=== PATIENT | male | born 1975 | race American Indian/Alaskan Native ===

== ENCOUNTER 2018-12-18 18:06 | Emergency (ER) | payer MEDICARE ==
[2018-12-18 18:31] LABS: Basophils % (Auto) 0.5 % (0.0-1.8); Eosinophils # (Auto) 0.1 K/mm3 (0.0-0.4); Eosinophils % (Auto) 2.1 % (0.0-4.3); Hemoglobin 15.2 gm/dl (11.8-15.2); Lymphocytes # (Auto) 2.5 K/mm3 (1.2-5.4); Lymphocytes % (Auto) 48.5 % (13.4-35.0); Mean Corpuscular HGB Conc 34 % (32-34); Mean Corpuscular Volume 102 fl (84-94); Monocytes # (Auto) 0.5 K/mm3 (0.0-0.8); Platelet Count 172 K/mm3 (140-440); Red Cell Distribution Width 14.4 % (13.2-15.2)
[2018-12-18 18:46] LABS: BUN/Creatinine Ratio 6; Blood Urea Nitrogen 6 mg/dL (9-20); Calcium 9.3 mg/dL (8.4-10.2); Hemolysis Index 6
[2018-12-18 18:50] LABS: Albumin 4.7 g/dL (3.9-5); Bilirubin,Direct 0.2 mg/dL (0-0.2)
[2018-12-18] MEDS ORDERED: ATIVAN IV PRN ×3 (19:13)
[2018-12-18] MEDS ORDERED: HALDOL IV PRN (19:13)
--- NOTE | 2018-12-18 19:46 | Emergency Department Report ---
Chief Complaint: Medical Clearance Stated Complaint: DETOX Time Seen by Provider: 12/18/18 18:14 - HPI History of Present Illness: voluntary polysub detox to main ER no HI/no SI MSE completed - Exam Vital Signs: Vital Signs 12/18/18 18:10 Temperature 98.2 F Pulse Rate 113 H Respiratory 18 Rate Blood Pressure 126/79 O2 Sat by Pulse 97 Oximetry MSE screening note: Focused history and physical exam performed. Due to findings the following was ordered: ED Medical Decision Making - Lab Data Result diagrams: 12/18/18 18:23 12/18/18 18:23 ED Disposition for MSE Condition: Stable Referrals: REBEKAH FITCH MD [Primary Care Provider] - 3-5 Days
[2018-12-18] MEDS ORDERED: VITAMIN B-1 100 MG, FOLVITE 1 MG, INFUVITE 10 ML in NACL 0.9% 1000 ML 1,000 ML IV ONE (20:13)
--- NOTE | 2018-12-18 20:27 | Emergency Department Report ---
ED Medical Clearance HPI - General Chief complaint: Medical Clearance Stated complaint: DETOX Time Seen by Provider: 12/18/18 18:14 Source: patient Mode of arrival: Ambulatory - History of Present Illness Initial comments: Patient is a 43-year-old Male who is presenting to the emergency department requesting a drug and alcohol treatment program. Patient states that he is a heavy drinker and has been drinking since he was age 9. Patient states he uses multiple illicit drugs including ecstasy mildly OxyContin and marijuana. Patient occasionally also uses benzos as well. Patient states his last drink was several hours ago however he would like to go to a treatment program and changes life around. Patient denies any homicidal suicidal ideations at this time. Home medications: Home Medications Medication Instructions Recorded Confirmed Last Taken ARIPiprazole [Abilify Maintena] 400 mg IM QMONTH 09/04/18 09/04/18 Unknown Asenapine Maleate [Saphris] 10 mg SL HS 09/04/18 09/04/18 Unknown Buprenorphine HCl/Naloxone HCl 4 mg SL DAILY 09/04/18 09/04/18 Unknown [Suboxone 4 mg-1 mg SL Film] [place] Carbonate 300 mg PO TID 09/04/18 09/04/18 Unknown Quetiapine Fumarate [Seroquel] 100 mg PO BID 09/04/18 09/04/18 Unknown Venlafaxine [Effexor 25mg tab] 25 mg PO BID 09/04/18 09/04/18 Unknown busPIRone [Buspar] 10 mg PO TID 09/04/18 09/04/18 Unknown Previous Rx's Medication Instructions Recorded Last Taken Type Ondansetron [Zofran Odt] 4 mg PO Q8HR #10 tab.rapdis 09/04/18 Unknown Rx amLODIPine [Norvasc] 5 mg PO DAILY #30 tablet 09/04/18 Unknown Rx Allergies/Adverse reactions: Allergies Allergy/AdvReac Type Severity Reaction Status Date / Time iodine Allergy Angioedema Verified 09/04/18 11:17 Penicillins Allergy Swelling Verified 09/04/18 11:17 shellfish derived Allergy Angioedema Verified 09/04/18 11:17 venom-honey bee Allergy Swelling Verified 09/04/18 11:17 [bee venom (honey bee)] ED Review of Systems ROS: Stated complaint: DETOX Other details as noted in HPI Comment: All other systems reviewed and negative ED Past Medical Hx - Past Medical History Previous Medical History?: Yes Hx Hypertension: Yes Hx Psychiatric Treatment: Yes (BIPOLAR,PTSD,PARANOID SCHIZO,DEPRESSION) Additional medical history: paranoid schizophrenia and bipolar. MANIC DEPRESSION. PTSD. ECT TREATMENTS CURRENTLY - Surgical History Past Surgical History?: No - Social History Smoking Status: Current Every Day Smoker Substance Use Type: Alcohol, Cocaine, Marijuana, Methamphetamines - Medications Home Medications: Home Medications Medication Instructions Recorded Confirmed Last Taken Type ARIPiprazole [Abilify Maintena] 400 mg IM QMONTH 09/04/18 09/04/18 Unknown Histo ry Asenapine Maleate [Saphris] 10 mg SL HS 09/04/18 09/04/18 Unknown History Buprenorphine HCl/Naloxone HCl 4 mg SL DAILY 09/04/18 09/04/18 Unknown History [Suboxone 4 mg-1 mg SL Film] [place] Carbonate 300 mg PO TID 09/04/18 09/04/18 Unknown History Ondansetron [Zofran Odt] 4 mg PO Q8HR #10 tab.rapdis 09/04/18 Unknown Rx Quetiapine Fumarate [Seroquel] 100 mg PO BID 09/04/18 09/04/18 Unknown History Venlafaxine [Effexor 25mg tab] 25 mg PO BID 09/04/18 09/04/18 Unknown History amLODIPine [Norvasc] 5 mg PO DAILY #30 tablet 09/04/18 Unknown Rx busPIRone [Buspar] 10 mg PO TID 09/04/18 09/04/18 Unknown History ED Physical Exam - General Limitations: No Limitations General appearance: alert, in no apparent distress - Head Head exam: Present: atraumatic, normocephalic - Eye Eye exam: Present: normal appearance - ENT ENT exam: Present: mucous membranes moist - Neck Neck exam: Present: normal inspection - Respiratory Respiratory exam: Present: normal lung sounds bilaterally. Absent: respiratory distress, wheezes, rales, rhonchi - Cardiovascular Cardiovascular Exam: Present: regular rate, normal rhythm. Absent: systolic murmur, diastolic murmur, rubs, gallop - GI/Abdominal GI/Abdominal exam: Present: soft, normal bowel sounds. Absent: distended, tenderness, guarding, rebound - Rectal Rectal exam: Present: deferred - Extremities Exam Extremities exam: Present: normal inspection - Back Exam Back exam: Present: normal inspection - Neurological Exam Neurological exam: Present: alert, oriented X3 - Psychiatric Psychiatric exam: Present: normal affect, normal mood - Skin Skin exam: Present: warm, dry, intact, normal color. Absent: rash ED Course Vital Signs 12/18/18 18:10 Temperature 98.2 F Pulse Rate 113 H Respiratory 18 Rate Blood Pressure 126/79 O2 Sat by Pulse 97 Oximetry - Reevaluation(s) Reevaluation #1: 12/19/18 00:18 Patient was placed on a 2013 for the patient's safety. Patient still awaiting a urinalysis at this time. ED Medical Decision Making - Lab Data Result diagrams: 12/18/18 18:23 12/18/18 18:23 Lab Results 12/18/18 12/18/18 12/18/18 Range/Units 18:23 18:23 18:23 WBC (4.5-11.0) K/mm3 RBC (3.65-5.03) M/mm3 Hgb (11.8-15.2) gm/dl Hct (35.5-45.6) % MCV (84-94) fl MCH (28-32) pg MCHC (32-34) % RDW (13.2-15.2) % Plt Count (140-440) K/mm3 Lymph % (Auto) (13.4-35.0) % [place] % (Auto) (0.0-7.3) % Eos % (Auto) (0.0-4.3) % Baso % (Auto) (0.0-1.8) % Lymph # (1.2-5.4) K/mm3 [place] # (0.0-0.8) K/mm3 Eos # (0.0-0.4) K/mm3 Baso # (0.0-0.1) K/mm3 Seg Neutrophils % (40.0-70.0) % Seg Neutrophils # (1.8-7.7) K/mm3 Sodium 141 (137-145) mmol/L Potassium 4.4 (3.6-5.0) mmol/L Chloride 103.2 (98-107) mmol/L Carbon Dioxide 24 (22-30) mmol/L Anion Gap 18 mmol/L BUN 6 L (9-20) mg/dL Creatinine 1.0 (0.8-1.5) mg/dL Estimated GFR > 60 ml/min BUN/Creatinine Ratio 6 % Glucose 71 L (75-100) mg/dL Calcium 9.3 (8.4-10.2) mg/dL Total Bilirubin (0.1-1.2) mg/dL Direct Bilirubin (0-0.2) mg/dL Indirect Bilirubin mg/dL AST (5-40) units/L ALT (7-56) units/L Alkaline Phosphatase (35-129) units/L Total Protein (6.3-8.2) g/dL Albumin (3.9-5) g/dL Albumin/Globulin Ratio % Salicylates < 0.3 L (2.8-20.0) mg/dL Acetaminophen < 5.0 L (10.0-30.0) ug/mL Plasma/Serum Alcohol (0-0.07) % 12/18/18 12/18/18 12/18/18 Range/Units 18:23 18:23 18:23 WBC 5.1 (4.5-11.0) K/mm3 RBC 4.40 (3.65-5.03) M/mm3 Hgb 15.2 (11.8-15.2) gm/dl Hct 45.0 (35.5-45.6) % MCV 102 H (84-94) fl MCH 35 H (28-32) pg MCHC 34 (32-34) % RDW 14.4 (13.2-15.2) % Plt Count 172 (140-440) K/mm3 Lymph % (Auto) 48.5 H (13.4-35.0) % [place] % (Auto) 9.0 H (0.0-7.3) % Eos % (Auto) 2.1 (0.0-4.3) % Baso % (Auto) 0.5 (0.0-1.8) % Lymph # 2.5 (1.2-5.4) K/mm3 [place] # 0.5 (0.0-0.8) K/mm3 Eos # 0.1 (0.0-0.4) K/mm3 Baso # 0.0 (0.0-0.1) K/mm3 Seg Neutrophils % 39.9 L (40.0-70.0) % Seg Neutrophils # 2.0 (1.8-7.7) K/mm3 Sodium (137-145) mmol/L Potassium (3.6-5.0) mmol/L Chloride (98-107) mmol/L Carbon Dioxide (22-30) mmol/L Anion Gap mmol/L BUN (9-20) mg/dL Creatinine (0.8-1.5) mg/dL Estimated GFR ml/min BUN/Creatinine Ratio % Glucose (75-100) mg/dL Calcium (8.4-10.2) mg/dL Total Bilirubin 0.90 (0.1-1.2) mg/dL Direct Bilirubin 0.2 (0-0.2) mg/dL Indirect Bilirubin 0.7 mg/dL AST 27 (5-40) units/L ALT 20 (7-56) units/L Alkaline Phosphatase 55 (35-129) units/L Total Protein 7.2 (6.3-8.2) g/dL Albumin 4.7 (3.9-5) g/dL Albumin/Globulin Ratio 1.9 % Salicylates (2.8-20.0) mg/dL Acetaminophen (10.0-30.0) ug/mL Plasma/Serum Alcohol 0.09 H (0-0.07) % - Medical Decision Making patient is medically cleared for detox treatment programs ED Disposition Clinical Impression: Schizophrenia, chronic condition, Polysubstance abuse Disposition: DC/TX-65 PSY HOSP/PSY UNIT Is pt being admited?: No Does the pt Need Aspirin: No Condition: Stable Time of Disposition: 00:19
[2018-12-19 06:18] LABS: Methadone Screen,Urine PRESUMPTIVE NEGATIVE; Opiate Screen,Urine PRESUMPTIVE NEGATIVE
[2018-12-19 06:49] LABS: Bacteria,Urine 1+ /HPF (Negative); Bilirubin,Urine NEG (Negative); Blood,Urine NEG (Negative); Calcium Oxalate Crystals,Urine FEW; Color,Urine Yellow (Yellow); Mucus,Urine FEW /HPF; Protein,Urine <15 mg/dL mg/dL (Negative)
[2018-12-19 07:09] LABS: Amphetamine Screen,Urine PRESUMPTIVE POSITIVE; Benzodiazepines Screen,Urine PRESUMPTIVE POSITIVE; Cannabinoid Screen,Urine PRESUMPTIVE POSITIVE; Cocaine Screen,Urine PRESUMPTIVE POSITIVE
--- NOTE | 2018-12-19 18:07 | Consultation ---
History of Present Illness - Reason for Consult Consult date: 12/19/18 Reason for consult: psych evaluation - Chief Complaint Chief complaint: sedated - History of Present Psychiatric Illness See note from health insurance assessor: [Pt is a 43yo SBF who presents to [facility] ED via pov requesting detox from Joselyn, Ecstasy, Oxycontin, Xanax, ETOH, and Marijuana. Pt reports hx of Schizoaffective Disorder, Bipolar type. He states he has been noncompliant with psychotropic Rx x2 weeks due to his outpt psychiatrist refusing to prescribe his Rx due to his current and ongoing substance abuse. Pt states he has been attending IOP at [facility] but was instructed to come to ED because he keeps showing up intoxicated and smelling of ETOH. Pt reports being on a binge x2 weeks after 3- years of sobriety. Pt reports first consuming ETOH at age 9. He drinks 12-pack of beer daily with last use today in the amount of 5-7 beers. BAL <0.09. Pt first abused Ecstasy 10+ years ago. He chews #5-10 pills daily with last use today in the amount of #3 pills. He reports abusing Xanax 1-2mg #6 daily via chewing/oral with last use 3 days ago. Age of first use unknown. Pt first abused Oxycontin at age 38. He chews #6 pills, unknown dosage, daily with last use 3 days ago. Pt reports first using Joselyn at age 43. He chews 1gm daily with last use 3 days ago. Lastly, pt first abused marijuana at age 9. He smokes 7gms daily with last use "on the way to the hospital." He denies current withdrawal sxs then states "I'm starting to feel hot and cold, I have a headache, and my stomach is cramping. He denies hx of withdrawals. Pt states he is just trying to get to [facility] to attend their 30-45 day program. He endorses paranoia in the form of people watching him and out to get him. Pt currently denies SI but admits to multiple prior attempts with most recent attempt via running into traffic although he is unable to recall when he last attempted. He denies HI/hx of HI and A/V hallucinations.] Psych to reassess in 24 hours if not transferred Medications and Allergies Allergies Allergy/AdvReac Type Severity Reaction Status Date / Time iodine Allergy Angioedema Verified 09/04/18 11:17 Penicillins Allergy Swelling Verified 09/04/18 11:17 shellfish derived Allergy Angioedema Verified 09/04/18 11:17 venom-honey bee Allergy Swelling Verified 09/04/18 11:17 [bee venom (honey bee)] Home Medications Medication Instructions Recorded Confirmed Last Taken Type ARIPiprazole [Abilify Maintena] 400 mg IM QMONTH 09/04/18 09/04/18 Unknown History Asenapine Maleate [Saphris] 10 mg SL HS 09/04/18 09/04/18 Unknown History Buprenorphine HCl/Naloxone HCl 4 mg SL DAILY 09/04/18 09/04/18 Unknown History [Suboxone 4 mg-1 mg SL Film] [place] Carbonate 300 mg PO TID 09/04/18 09/04/18 Unknown History Ondansetron [Zofran Odt] 4 mg PO Q8HR #10 tab.rapdis 09/04/18 Unknown Rx Quetiapine Fumarate [Seroquel] 100 mg PO BID 09/04/18 09/04/18 Unknown History Venlafaxine [Effexor 25mg tab] 25 mg PO BID 09/04/18 09/04/18 Unknown History amLODIPine [Norvasc] 5 mg PO DAILY #30 tablet 09/04/18 Unknown Rx busPIRone [Buspar] 10 mg PO TID 09/04/18 09/04/18 Unknown History Active Meds: Active Medications Haloperidol Lactate (Haldol) 5 mg IV Q1H PRN PRN Reason: Unrespon. to mult. doses BZD's Lorazepam (Ativan) 2 mg IV Q1H PRN PRN Reason: CIWA-Ar 8-15 Last Admin: 12/19/18 13:00 Dose: 2 mg Documented by: Lorazepam (Ativan) 4 mg IV Q1H PRN PRN Reason: CIWA-Ar 16-25 Last Admin: 12/19/18 08:00 Dose: 4 mg Documented by: Lorazepam (Ativan) 4 mg IV Q15MIN PRN PRN Reason: CIWA-Ar >25 Past psychiatric history - past Psychiatric treatment and history psychiatric treatment history: schizoaffective disorder 3 years sobriety after attending rehab in [place] Mental Status Exam - Vital signs Last Vital Signs Temp 98.2 F 12/18/18 18:10 Pulse 100 H 12/19/18 13:00 Resp 20 12/19/18 13:00 BP 126/86 12/19/18 13:00 Pulse Ox 99 12/19/18 13:00 - Exam Narrative exam: sedated unable to assess Results Result Diagrams: 12/18/18 18:23 12/18/18 18:23 Abnormal lab results 12/18/18 12/18/18 12/18/18 Range/Units 18:23 18:23 18:23 MCV (84-94) fl MCH (28-32) pg Lymph % (Auto) (13.4-35.0) % [place] % (Auto) (0.0-7.3) % Seg Neutrophils % (40.0-70.0) % BUN 6 L (9-20) mg/dL Glucose 71 L (75-100) mg/dL Salicylates < 0.3 L (2.8-20.0) mg/dL Acetaminophen < 5.0 L (10.0-30.0) ug/mL Plasma/Serum Alcohol (0-0.07) % 12/18/18 12/18/18 Range/Units 18:23 18:23 MCV 102 H (84-94) fl MCH 35 H (28-32) pg Lymph % (Auto) 48.5 H (13.4-35.0) % [place] % (Auto) 9.0 H (0.0-7.3) % Seg Neutrophils % 39.9 L (40.0-70.0) % BUN (9-20) mg/dL Glucose (75-100) mg/dL Salicylates (2.8-20.0) mg/dL Acetaminophen (10.0-30.0) ug/mL Plasma/Serum Alcohol 0.09 H (0-0.07) % All other labs normal. Assessment and Plan Assessment and plan: impression: polysubstance abuse. He is requesting detox from alcohol. Ecstasy, Oxycontin, Xanax, ETOH, and Marijuana use alcohol use disorder, in withdrawal opioid use disorder sedative/hypnotic use disorder cannabis use disorder schizoaffective disorder, bipolar type by history Recommendations: continue 2013 no med recommendations at this time continue CIWA per ER protocol dispo: inpatient detox needed staffed with Dr. Cooper
[2018-12-19 19:01] VITALS: BP 121/85
== END 2018-12-19 19:00 ==
LOC: ED 18:06
DX: F20.9 Schizophrenia, unspecified (principal); F19.10 Other psychoactive substance abuse, uncomplicated; I10 Essential (primary) hypertension; F31.9 Bipolar disorder, unspecified; F32.9 Major depressive disorder, single episode, unspecified; F17.200 Nicotine dependence, unspecified, uncomplicated; F14.10 Cocaine abuse, uncomplicated; F12.10 Cannabis abuse, uncomplicated
CPT/HCPCS: 36415; 80048; 80076; 80307; 81001; 85025; 96365; 96366; 96375; 96376; 99284; G0480; J2060; J3411; J7030; 80320

== ENCOUNTER 2018-12-19 22:33 | Emergency (ER) | payer MEDICARE ==
--- NOTE | 2018-12-19 23:01 | Emergency Department Report ---
ED Psych HPI - General Stated Complaint: MH Time Seen by Provider: 12/19/18 22:51 Source: patient Mode of arrival: Ambulatory Limitations: No Limitations - History of Present Illness Initial Comments: Patient is a 43-year-old male presents to emergency room with complaints of wan ting detox and depression and anxiety. Patient states she was recently released from [place] but is having problems coping. Patient denies suicidal and homicidal ideations. Patient complains of audio hallucinations. Patient states he needs mood stabilizer in a psychiatric meds. Patient states she's been off his psychiatric meds for 3 weeks. Patient very tangential at this time. MD Complaint: feels depressed -: Sudden Associated Psychiatric Symptoms: depression, racing thoughts, auditory hallucinations, delusions History of same: Yes Quality: constant Improves With: medication, therapy Worsens With: drug use Context: recent alcohol abuse, recent drug abuse, not taking psychiatric, sig nificant life stressor Associated Symptoms: denies: confusion, headache, shortness of breath, nausea, vomiting, syncope, insomnia - Related Data Home Medications Medication Instructions Recorded Confirmed Last Taken ARIPiprazole [Abilify Maintena] 400 mg IM QMONTH 09/04/18 09/04/18 Unknown Asenapine Maleate [Saphris] 10 mg SL HS 09/04/18 09/04/18 Unknown Buprenorphine HCl/Naloxone HCl 4 mg SL DAILY 09/04/18 09/04/18 Unknown [Suboxone 4 mg-1 mg SL Film] [place] Carbonate 300 mg PO TID 09/04/18 09/04/18 Unknown Quetiapine Fumarate [Seroquel] 100 mg PO BID 09/04/18 09/04/18 Unknown Venlafaxine [Effexor 25mg tab] 25 mg PO BID 09/04/18 09/04/18 Unknown busPIRone [Buspar] 10 mg PO TID 09/04/18 09/04/18 Unknown Previous Rx's Medication Instructions Recorded Last Taken Type Ondansetron [Zofran Odt] 4 mg PO Q8HR #10 tab.rapdis 09/04/18 Unknown Rx amLODIPine [Norvasc] 5 mg PO DAILY #30 tablet 09/04/18 Unknown Rx Allergies Allergy/AdvReac Type Severity Reaction Status Date / Time iodine Allergy Angioedema Verified 09/04/18 11:17 Penicillins Allergy Swelling Verified 09/04/18 11:17 shellfish derived Allergy Angioedema Verified 09/04/18 11:17 venom-honey bee Allergy Swelling Verified 09/04/18 11:17 [bee venom (honey bee)] ED Review of Systems ROS: Stated complaint: MH Other details as noted in HPI Constitutional: denies: chills, fever Eyes: denies: eye pain, eye discharge, vision change ENT: denies: ear pain, throat pain Respiratory: denies: cough, shortness of breath, wheezing Cardiovascular: denies: chest pain, palpitations Endocrine: no symptoms reported Gastrointestinal: denies: abdominal pain, nausea, diarrhea Genitourinary: denies: urgency, dysuria Musculoskeletal: denies: back pain, joint swelling, arthralgia Skin: denies: rash, lesions Neurological: denies: headache, weakness, paresthesias Psychiatric: anxiety, depression, auditory hallucinations. denies: visual hallucinations, homicidal thoughts, suicidal thoughts Hematological/Lymphatic: denies: easy bleeding, easy bruising ED Past Medical Hx - Past Medical History Previous Medical History?: Yes Hx Hypertension: Yes Hx Psychiatric Treatment: Yes (BIPOLAR,PTSD,PARANOID SCHIZO,DEPRESSION) Additional medical history: paranoid schizophrenia and bipolar. MANIC DEPRESSION. PTSD. ECT TREATMENTS CURRENTLY - Surgical History Past Surgical History?: No - Family History Family history: no significant - Social History Smoking Status: Current Every Day Smoker Substance Use Type: Alcohol, Cocaine, Marijuana, Methamphetamines - Medications Home Medications: Home Medications Medication Instructions Recorded Confirmed Last Taken Type ARIPiprazole [Abilify Maintena] 400 mg IM QMONTH 09/04/18 09/04/18 Unknown History Asenapine Maleate [Saphris] 10 mg SL HS 09/04/18 09/04/18 Unknown History Buprenorphine HCl/Naloxone HCl 4 mg SL DAILY 09/04/18 09/04/18 Unknown History [Suboxone 4 mg-1 mg SL Film] [place] Carbonate 300 mg PO TID 09/04/18 09/04/18 Unknown History Ondansetron [Zofran Odt] 4 mg PO Q8HR #10 tab.rapdis 09/04/18 Unknown Rx Quetiapine Fumarate [Seroquel] 100 mg PO BID 09/04/18 09/04/18 Unknown History Venlafaxine [Effexor 25mg tab] 25 mg PO BID 09/04/18 09/04/18 Unknown History amLODIPine [Norvasc] 5 mg PO DAILY #30 tablet 09/04/18 Unknown Rx busPIRone [Buspar] 10 mg PO TID 09/04/18 09/04/18 Unknown History ED Physical Exam - General Limitations: No Limitations General appearance: alert, in no apparent distress - Head Head exam: Present: atraumatic, normocephalic - Eye Eye exam: Present: normal appearance - ENT ENT exam: Present: mucous membranes moist - Neck Neck exam: Present: normal inspection - Respiratory Respiratory exam: Present: normal lung sounds bilaterally. Absent: respiratory distress - Cardiovascular Cardiovascular Exam: Present: regular rate, normal rhythm. Absent: systolic murmur, diastolic murmur, rubs, gallop - GI/Abdominal GI/Abdominal exam: Present: soft, normal bowel sounds - Rectal Rectal exam: Present: deferred - Extremities Exam Extremities exam: Present: normal inspection - Back Exam Back exam: Present: normal inspection - Neurological Exam Neurological exam: Present: alert, oriented X3 - Psychiatric Psychiatric exam: Present: depressed, agitated, anxious, flat affect - Expanded Psychiatric Exam Expanded Focused psych exam: Present: internal stimuli, delusional, paranoid, restlessness, flight of ideas - Skin Skin exam: Present: warm, dry, intact, normal color. Absent: rash ED Course - Reevaluation(s) Reevaluation #1: Patient placed on 1013 for acute psychosis. Patient will be evaluated by mental health. Patient will remain in the ER until excepted to appropriate psychiatric facility. 12/19/18 2251 Reevaluation #2: Stress the last patient. Labs are unremarkable and patient is medically clear. Patient will remain in the ER is an ER hold And on a 1013. 12/20/18 02:14 ED Medical Decision Making - Lab Data Result diagrams: 12/19/18 23:35 12/19/18 23:35 - Medical Decision Making Patient is a [age]-year-old male that presents to emergency room with altered level complaints. Patient having symptoms of acute psychosis. Patient placed on 1013. Patient remained in the ER until accepted into appropriate psychiatric facility. Patient also history of substance abuse. Labs unremarkable except for UDS is positive. - Differential Diagnosis acute psychosis. Depression. Substance abuse. Hallucinations Critical care attestation.: If time is entered above; I have spent that time in minutes in the direct care of this critically ill patient, excluding procedure time. ED Disposition Clinical Impression: Acute psychosis, Polysubstance abuse, Hallucinations Disposition: DC/TX-65 PSY HOSP/PSY UNIT Is pt being admited?: No Does the pt Need Aspirin: No Condition: Stable Additional Instructions: Patient is medically cleared Referrals: PRIMARY CARE, [Primary Care Provider] - 3-5 Days Time of Disposition: 02:17
[2018-12-19 23:44] LABS: Basophils % (Auto) 0.9 % (0.0-1.8); Eosinophils # (Auto) 0.2 K/mm3 (0.0-0.4); Eosinophils % (Auto) 3.8 % (0.0-4.3); Hematocrit 44.7 % (35.5-45.6); Hemoglobin 15.3 gm/dl (11.8-15.2); Lymphocytes # (Auto) 1.4 K/mm3 (1.2-5.4); Lymphocytes % (Auto) 26.3 % (13.4-35.0); Mean Corpuscular HGB Conc 34 % (32-34); Mean Corpuscular Volume 102 fl (84-94); Monocytes # (Auto) 0.3 K/mm3 (0.0-0.8); Monocytes % (Auto) 6.6 % (0.0-7.3); Platelet Count 165 K/mm3 (140-440); Red Blood Count 4.37 M/mm3 (3.65-5.03)
[2018-12-19 23:56] LABS: Bilirubin,Urine NEG (Negative); Blood,Urine NEG (Negative); Color,Urine Straw (Yellow); Mucus,Urine FEW /HPF; Protein,Urine <15 mg/dL mg/dL (Negative); Urobilinogen,Urine < 2.0 mg/dL (<2.0)
[2018-12-20 00:02] LABS: Alanine Aminotransferase 20 units/L (7-56); Albumin 4.5 g/dL (3.9-5); BUN/Creatinine Ratio 11; Blood Urea Nitrogen 11 mg/dL (9-20); Calcium 9.5 mg/dL (8.4-10.2); Hemolysis Index 21
[2018-12-20 00:04] LABS: Methadone Screen,Urine PRESUMPTIVE NEGATIVE; Opiate Screen,Urine PRESUMPTIVE NEGATIVE
[2018-12-20 00:23] LABS: Amphetamine Screen,Urine PRESUMPTIVE POSITIVE; Benzodiazepines Screen,Urine PRESUMPTIVE POSITIVE; Cannabinoid Screen,Urine PRESUMPTIVE POSITIVE; Cocaine Screen,Urine PRESUMPTIVE POSITIVE
--- NOTE | 2018-12-20 01:04 | Consultation ---
History of Present Illness - Reason for Consult Consult date: 12/19/18 Reason for consult: psychiatric evaluation - Chief Complaint Chief complaint: sedated Medications and Allergies Allergies Allergy/AdvReac Type Severity Reaction Status Date / Time iodine Allergy Angioedema Verified 09/04/18 11:17 Penicillins Allergy Swelling Verified 09/04/18 11:17 shellfish derived Allergy Angioedema Verified 09/04/18 11:17 venom-honey bee Allergy Swelling Verified 09/04/18 11:17 [bee venom (honey bee)] Home Medications Medication Instructions Recorded Confirmed Last Taken Type ARIPiprazole [Abilify Maintena] 400 mg IM QMONTH 09/04/18 09/04/18 Unknown History Asenapine Maleate [Saphris] 10 mg SL HS 09/04/18 09/04/18 Unknown History Buprenorphine HCl/Naloxone HCl 4 mg SL DAILY 09/04/18 09/04/18 Unknown History [Suboxone 4 mg-1 mg SL Film] [place] Carbonate 300 mg PO TID 09/04/18 09/04/18 Unknown History Ondansetron [Zofran Odt] 4 mg PO Q8HR #10 tab.rapdis 09/04/18 Unknown Rx Quetiapine Fumarate [Seroquel] 100 mg PO BID 09/04/18 09/04/18 Unknown History Venlafaxine [Effexor 25mg tab] 25 mg PO BID 09/04/18 09/04/18 Unknown History amLODIPine [Norvasc] 5 mg PO DAILY #30 tablet 09/04/18 Unknown Rx busPIRone [Buspar] 10 mg PO TID 09/04/18 09/04/18 Unknown History Mental Status Exam - Exam Narrative exam: sedated unable to assess Results Result Diagrams: 12/19/18 23:35 12/19/18 23:35 Abnormal lab results 12/19/18 12/19/18 12/19/18 Range/Units 23:35 23:35 23:35 Hgb 15.3 H (11.8-15.2) gm/dl MCV 102 H (84-94) fl MCH 35 H (28-32) pg Salicylates < 0.3 L (2.8-20.0) mg/dL Acetaminophen < 5.0 L (10.0-30.0) ug/mL All other labs normal. Assessment and Plan Assessment and plan: impression: polysubstance abuse. He is requesting detox from alcohol. He is also using ecstasy and thc. alcohol use disorder, in withdrawal Recommendations: continue 2012 no med recommendations at this time continue CIWA per ER protocol dispo: inpatient detox needed staffed with Dr. Cooper
--- NOTE | 2018-12-20 10:49 | Progress Note ---
Subjective - Reason for Consult Consult date: 12/20/18 Reason for consult: Psyhciatry Follow-up - Chief Complaint Chief complaint: "I want to stay clean" 43-year-old AA male presented to the ER for substance abuse and anxiety. Today the patient is calm and cooperative during the assessment. He stated that he want to stay "clean" off substances. He stated that his life is "messed up" when he use drugs and drink alcohol (etoh). He stated that he was sober and clean for 3 years and his life was "fine" during that time. He stated that he will follow up with rehab services when discharged. He denies SI/HI's and AVH's. He denies being depressed when asked. Mental Status Exam - Vital signs Last Vital Signs Temp 97.3 F L 12/20/18 08:25 Pulse 76 12/20/18 08:25 Resp 18 12/20/18 08:25 BP 123/75 12/20/18 08:25 Pulse Ox 100 12/20/18 08:25 - Exam Narrative exam: MSE: Appearance: calm, cooperative Behavior: regular eye contact Speech: regular rate and tone Mood:: "okay" Affect: congruent to mood Thought Process: linear Thought Content: denies SI/HI's and AVH's Motor Activity: ambulatory Cognition: A/O x3 Insight: appropriate Judgment: appropriate Assessment and Plan Impression: Substance Use DO. Alcohol Use DO. Cannabis Use DO. Opioid Use DO. No overt psychosis by the patient at this time. Today the patient is calm and cooperative during the assessment. Recommendation/Plan: Rescind 3. Discussed the importance to abstain from recreational drug use and alcohol consumption (etoh). Dispo: The patient can follow up with [facility] for outpatient psy services. Also, the patient can volunteer for [facility]. [facility] staff with Dr. Rosemary Cooper
[2018-12-20 14:24] VITALS: BP 111/80
== END 2018-12-20 16:50 | disposition home or self-care (01) ==
LOC: ED 22:33 → EEVIPCON 22:33 → ED 12-20 16:50
DX: F23 Brief psychotic disorder (principal); F44.0 Dissociative amnesia; F19.10 Other psychoactive substance abuse, uncomplicated; I10 Essential (primary) hypertension; F31.9 Bipolar disorder, unspecified; F20.9 Schizophrenia, unspecified; F17.200 Nicotine dependence, unspecified, uncomplicated; F14.10 Cocaine abuse, uncomplicated; F12.10 Cannabis abuse, uncomplicated
CPT/HCPCS: 36415; 80053; 80307; 81001; 85025; 99284; G0480; 80320

== ENCOUNTER 2018-12-27 15:11 | Emergency (ER) | payer MEDICARE ==
--- NOTE | 2018-12-27 16:16 | Emergency Department Report ---
Chief Complaint: Medical Clearance Stated Complaint: MED REFILL Time Seen by Provider: 12/27/18 16:15 - HPI History of Present Illness: Pt presents to the ED for a medication refill states he needs to refill his gabapentin states he had an issue with his PCP asymptomatic
--- NOTE | 2018-12-27 16:21 | Emergency Department Report ---
ED Medical Clearance HPI - General Chief complaint: Medical Clearance Stated complaint: MED REFILL Time Seen by Provider: 12/27/18 16:15 Source: patient Mode of arrival: Ambulatory - History of Present Illness Initial comments: Pt is a a 43 yo male with a hx of psych and polysubstance abuse presents to the ED for a medication refill. Pt states he needs to refill his gabapentin. Pt does not have any records of being on gabapentin in his chart. Pt was in the ED on 12/18/18 and had several medications refilled at that time which did not include gabapentin. Pt states he had an issue with his PCP and thats why he did not get his medications filled through his PCP. Pt states he is looking for a new PCP. Pt is currently asymptomatic. Home medications: Home Medications Medication Instructions Recorded Confirmed Last Taken ARIPiprazole [Abilify Maintena] 400 mg IM QMONTH 09/04/18 09/04/18 Unknown Asenapine Maleate [Saphris] 10 mg SL HS 09/04/18 09/04/18 Unknown Buprenorphine HCl/Naloxone HCl 4 mg SL DAILY 09/04/18 09/04/18 Unknown [Suboxone 4 mg-1 mg SL Film] [place] Carbonate 300 mg PO TID 09/04/18 09/04/18 Unknown Quetiapine Fumarate [Seroquel] 100 mg PO BID 09/04/18 09/04/18 Unknown Venlafaxine [Effexor 25mg tab] 25 mg PO BID 09/04/18 09/04/18 Unknown busPIRone [Buspar] 10 mg PO TID 09/04/18 09/04/18 Unknown Previous Rx's Medication Instructions Recorded Last Taken Type Ondansetron [Zofran ODT TAB] 4 mg PO Q8HR #10 tab.rapdis 09/04/18 Unknown Rx amLODIPine [Norvasc] 5 mg PO DAILY #30 tablet 09/04/18 Unknown Rx Allergies/Adverse reactions: Allergies Allergy/AdvReac Type Severity Reaction Status Date / Time iodine Allergy Angioedema Verified 12/27/18 15:14 Penicillins Allergy Swelling Verified 12/27/18 15:14 shellfish derived Allergy Angioedema Verified 12/27/18 15:14 venom-honey bee Allergy Swelling Verified 12/27/18 15:14 [bee venom (honey bee)] ED Review of Systems ROS: Stated complaint: MED REFILL Other details as noted in HPI Comment: All other systems reviewed and negative ED Past Medical Hx - Past Medical History Hx Hypertension: Yes Hx Psychiatric Treatment: Yes (BIPOLAR,PTSD,PARANOID SCHIZO,DEPRESSION) Additional medical history: paranoid schizophrenia and bipolar. MANIC DEPRESSION. PTSD. ECT TREATMENTS CURRENTLY - Social History Smoking Status: Current Every Day Smoker Substance Use Type: Alcohol, Cocaine, Marijuana, Methamphetamines - Medications Home Medications: Home Medications Medication Instructions Recorded Confirmed Last Taken Type ARIPiprazole [Abilify Maintena] 400 mg IM QMONTH 09/04/18 09/04/18 Unknown History Asenapine Maleate [Saphris] 10 mg SL HS 09/04/18 09/04/18 Unknown History Buprenorphine HCl/Naloxone HCl 4 mg SL DAILY 09/04/18 09/04/18 Unknown History [Suboxone 4 mg-1 mg SL Film] [place] Carbonate 300 mg PO TID 09/04/18 09/04/18 Unknown History Ondansetron [Zofran ODT TAB] 4 mg PO Q8HR #10 tab.rapdis 09/04/18 Unknown Rx Quetiapine Fumarate [Seroquel] 100 mg PO BID 09/04/18 09/04/18 Unknown History Venlafaxine [Effexor 25mg tab] 25 mg PO BID 09/04/18 09/04/18 Unknown History amLODIPine [Norvasc] 5 mg PO DAILY #30 tablet 09/04/18 Unknown Rx busPIRone [Buspar] 10 mg PO TID 09/04/18 09/04/18 Unknown History ED Physical Exam - General Limitations: No Limitations General appearance: alert, in no apparent distress - Head Head exam: Present: atraumatic, normocephalic - ENT ENT exam: Present: mucous membranes moist - Respiratory Respiratory exam: Present: normal lung sounds bilaterally. Absent: respiratory distress, wheezes, rales, rhonchi, stridor, chest wall tenderness, accessory muscle use, decreased breath sounds, prolonged expiratory - Cardiovascular Cardiovascular Exam: Present: regular rate, normal rhythm, normal heart sounds. Absent: systolic murmur, diastolic murmur, rubs, gallop - Neurological Exam Neurological exam: Present: alert, oriented X3 - Psychiatric Psychiatric exam: Present: normal affect, normal mood - Skin Skin exam: Present: warm, dry, intact ED Course Vital Signs 12/27/18 16:52 Temperature 97.5 F L Pulse Rate 94 H Respiratory 18 Rate Blood Pressure 116/79 [Right] O2 Sat by Pulse 97 Oximetry ED Medical Decision Making - Medical Decision Making Pt is a a 43 yo male with a hx of psych and polysubstance abuse presents to the ED for a medication refill. Pt states he needs to refill his gabapentin. Pt does not have any records of being on gabapentin in his chart. Pt was in the ED on 12/18/18 and had several medications refilled at that time which did not include gabapentin. Pt states he had an issue with his PCP and thats why he did not get his medications filled through his PCP. Pt states he is looking for a new PCP. Pt is currently asymptomatic. Pt was given 2 primary care doctors to follow up with. Advised that he would need to have his gabapentin refilled through a PCP. Discussed return to the ED if begin experiencing any symptoms. ED Disposition Clinical Impression: Medication refill Disposition: DC-01 TO HOME OR SELFCARE Is pt being admited?: No Does the pt Need Aspirin: No Condition: Stable Instructions: Normal Exam (ED) Additional Instructions: Please follow up with a primary care doctor. Will need to receive refills of medications through primary care. Return to the emergency room if begin experiencing any symptoms. [facility] Address: [address] [place] [address], [place] [address] May follow up with a PCP as soon as possible Referrals: WYATT ANTONY MD [Staff Physician] - JOANNE Time of Disposition: 16:26 Print Language: HONG KONGER
[2018-12-28 19:23] VITALS: BP 116/79
== END 2018-12-27 16:55 | disposition home or self-care (01) ==
LOC: ED 15:11
DX: F19.10 Other psychoactive substance abuse, uncomplicated (principal); I10 Essential (primary) hypertension; F14.10 Cocaine abuse, uncomplicated; F12.10 Cannabis abuse, uncomplicated; F17.200 Nicotine dependence, unspecified, uncomplicated; Z76.0 Encounter for issue of repeat prescription; Z88.0 Allergy status to penicillin; Z91.041 Radiographic dye allergy status; Z91.013 Allergy to seafood; Z91.030 Bee allergy status
CPT/HCPCS: 99282

== ENCOUNTER 2019-01-05 19:49 | Emergency (ER) | payer MEDICARE ==
[2019-01-05 19:59] VITALS: BP 132/88
--- NOTE | 2019-01-05 20:02 | Emergency Department Report ---
Blank Doc - Documentation Documentation: This is a 43-year-old male that presents with bilateral axilla rash. This initial assessment/diagnostic orders/clinical plan/treatment(s) is/are subject to change based on patient's health status, clinical progression and re- assessment by fellow clinical providers in the ED. Further treatment and workup at subsequent clinical providers discretion. Patient/guardians urged not to elope from the ED as their condition may be serious if not clinically assessed and managed. Initial orders include: 1- Patient sent to [facility] for further evaluation and treatment
[2019-01-05] MEDS ORDERED: DECADRON IM ONE (23:29)
--- NOTE | 2019-01-05 23:33 | Emergency Department Report ---
ED Rash HPI - HPI Chief Complaint: Skin Rash Stated Complaint: ARM PIT RASH Time Seen by Provider: 01/05/19 20:00 Duration: 1 week Location: Upper Extremities (bilateral axilla) Suspected Cause: Other (deodorant) Rash Symptoms: Yes Itching, No Facial Swelling, No Tongue/Oral Swelling, No Breathing Difficulties, No Choking Sensation, No Wheezing/Dyspnea, No Peeling, No Blistering, No Fever, No Lightheaded, No Malaise, No Myalgias Severity: moderate Other History: This is a 43-year-old Faro[place] male who presents with burning and redness to the bilateral axilla for one week. Patient states changed deodorant a few days ago and symptoms have progressed. Patient states pain is worse with touch and movement. He also reports some redness with rash. He denies warmth, drainage, difficulty breathing, tongue swelling, or difficulty swallowing. ED Review of Systems ROS: Stated complaint: ARM PIT RASH Other details as noted in HPI Constitutional: denies: chills, fever Respiratory: denies: cough, shortness of breath, wheezing Cardiovascular: denies: chest pain, palpitations Gastrointestinal: denies: abdominal pain, nausea, diarrhea Skin: rash (bilateral axilla). denies: lesions Neurological: denies: headache, weakness, paresthesias Psychiatric: denies: anxiety, depression ED Past Medical Hx - Past Medical History Previous Medical History?: Yes Hx Hypertension: Yes Hx Psychiatric Treatment: Yes (BIPOLAR,PTSD,PARANOID SCHIZO,DEPRESSION) Additional medical history: paranoid schizophrenia and bipolar. MANIC DEPRESSION. PTSD, High Cholesterol. ECT TREATMENTS CURRENTLY - Surgical History Past Surgical History?: No - Social History Smoking Status: Current Every Day Smoker Substance Use Type: None - Medications Home Medications: Home Medications Medication Instructions Recorded Confirmed Last Taken Type ARIPiprazole [Abilify Maintena] 400 mg IM QMONTH 09/04/18 09/04/18 Unknown History Asenapine Maleate [Saphris] 10 mg SL HS 09/04/18 09/04/18 Unknown History Buprenorphine HCl/Naloxone HCl 4 mg SL DAILY 09/04/18 09/04/18 Unknown History [Suboxone 4 mg-1 mg SL Film] [place] Carbonate 300 mg PO TID 09/04/18 09/04/18 Unknown History Ondansetron [Zofran ODT TAB] 4 mg PO Q8HR #10 tab.rapdis 09/04/18 Unknown Rx Quetiapine Fumarate [Seroquel] 100 mg PO BID 09/04/18 09/04/18 Unknown History Venlafaxine [Effexor 25mg tab] 25 mg PO BID 09/04/18 09/04/18 Unknown History amLODIPine [Norvasc] 5 mg PO DAILY #30 tablet 09/04/18 Unknown Rx busPIRone [Buspar] 10 mg PO TID 09/04/18 09/04/18 Unknown History Triamcinolone 0.1% [Kenalog 0.1% 1 applic TP BID #1 tube 01/05/19 Unknown Rx CREAM] hydrOXYzine PAMOATE [Vistaril] 25 mg PO Q6HR PRN #20 capsule 01/05/19 Unknown Rx methylPREDNISolone [Medrol] 4 mg PO DAILY #1 tab.ds.pk 01/05/19 Unknown Rx Rash Exam - Exam General: Vital signs noted. No distress. Alert and acting appropriately. HEENT: No Periorbital Edema, No Conjuctival Injection, No Chemosis, No Perioral Edema, No Tongue Edema, No Uvular Edema, No Compromised Airway, No Drooling Lungs: Yes Good Air Exchange (Normal Breath Sounds), No Wheezes, No Ronchi, No Stridor, No Cough, No Labored Respirations, No Retractions, No Use of Accessory Muscles, No Other Abnormal Lung Sounds Heart: Yes Regular, No Murmur Skin: Yes Maculopapular Rash (erythematous maculopapular rash to bilateral axilla, tenderness, no swelling or drainage, full range of motion of bilateral upper extremity), Yes Erythema, No Urticarial Rash, No Morbilliform rash, No Bulla(e), No Excoriations, No Weeping, No Tenderness, No Edema, No Encrustations ED Course Vital Signs 01/05/19 01/05/19 19:56 20:01 Temperature 98.6 F 98.1 F Pulse Rate 106 H 105 H Respiratory 18 18 Rate Blood Pressure 132/88 132/88 O2 Sat by Pulse 98 98 Oximetry ED Medical Decision Making - Medical Decision Making This is a 43-year-old -Faroese female presents with a rash to bilateral axilla after change in deodorant for one week. Patient examined by me. No distress noted. Vitals stable. Patient is drinking fluids w/o distress in ER. Physical assessment susceptible of allergic contact dermatitis. Given dexamethasone 8 mg IM while in ER. Start Medrol Dosepak, Vistaril, and triamcinolone cream. Discussed plan with patient and agreed to plan. Discharged home stable. Critical care attestation.: If time is entered above; I have spent that time in minutes in the direct care of this critically ill patient, excluding procedure time. ED Disposition Clinical Impression: Skin rash Allergic contact dermatitis Qualifiers: Contact dermatitis trigger: cosmetics Qualified Code(s): L23.2 - Allergic contact dermatitis due to cosmetics Disposition: - TO HOME OR SELFCARE Is pt being admited?: No Does the pt Need Aspirin: No Condition: Stable Instructions: Contact Dermatitis (ED) Additional Instructions: Apply a thin layer of /triamcinolone cream twice a day for 5-10 days. Wash area before applying cream. Complete full course of steroids as prescribed. Follow up with primary care provider if symptoms are not improving. Prescriptions: Triamcinolone 0.1% [Kenalog 0.1% CREAM] 1 applic TP BID #1 tube methylPREDNISolone [Medrol] 4 mg PO DAILY #1 tab.ds.pk hydrOXYzine PAMOATE [Vistaril] 25 mg PO Q6HR PRN #20 capsule PRN Reason: Itching Referrals: REBEKAH FITCH MD [Primary Care Provider] - 3-5 Days [facility] [Outside] - 3-5 Days [facility] [Outside] - 3-5 Days Forms: Work/School Release Form(ED) Time of Disposition: 23:39
== END 2019-01-05 23:45 | disposition home or self-care (01) ==
LOC: ED 19:49
DX: L23.2 Allergic contact dermatitis due to cosmetics (principal); I10 Essential (primary) hypertension; F31.9 Bipolar disorder, unspecified; F20.0 Paranoid schizophrenia; F43.10 Post-traumatic stress disorder, unspecified; E78.00 Pure hypercholesterolemia, unspecified; F17.200 Nicotine dependence, unspecified, uncomplicated; Z88.0 Allergy status to penicillin; Z91.013 Allergy to seafood; Z91.030 Bee allergy status; Z91.018 Allergy to other foods; Z79.899 Other long term (current) drug therapy
CPT/HCPCS: 96372; 99282; J1100

== ENCOUNTER 2019-02-12 14:53 | Emergency (ER) | payer MEDICARE ==
[2019-02-12 15:28] VITALS: BP 129/95
--- NOTE | 2019-02-12 15:30 | Emergency Department Report ---
Blank Doc - Documentation Documentation: 43 y o male with hx of Drug use and alcohol use presents stating that he has the shakes because he is unable to get medication till thursday at his rehab facility due to no medical proffessional staff labs abelino delgado
[2019-02-12 15:52] LABS: Basophils # (Auto) 0.1 K/mm3 (0.0-0.1); Basophils % (Auto) 0.9 % (0.0-1.8); Eosinophils # (Auto) 0.2 K/mm3 (0.0-0.4); Eosinophils % (Auto) 2.4 % (0.0-4.3); Hematocrit 43.5 % (35.5-45.6); Hemoglobin 14.9 gm/dl (11.8-15.2); Lymphocytes # (Auto) 1.6 K/mm3 (1.2-5.4); Mean Corpuscular HGB Conc 34 % (32-34); Mean Corpuscular Volume 100 fl (84-94); Monocytes # (Auto) 0.5 K/mm3 (0.0-0.8); Monocytes % (Auto) 8.8 % (0.0-7.3); Platelet Count 252 K/mm3 (140-440); Red Blood Count 4.35 M/mm3 (3.65-5.03); Red Cell Distribution Width 14.2 % (13.2-15.2)
[2019-02-12 16:46] LABS: BUN/Creatinine Ratio 9; Blood Urea Nitrogen 8 mg/dL (9-20); Calcium 9.8 mg/dL (8.4-10.2); Hemolysis Index 18
--- NOTE | 2019-02-12 18:18 | Emergency Department Report ---
ED Recheck HPI - General Chief Complaint: Medical Clearance Stated Complaint: MEDICATION REFILL Time Seen by Provider: 02/12/19 15:27 Source: patient Mode of arrival: Ambulatory Limitations: No Limitations - History of Present Illness Initial Comments: This is a 43-year-old male here report that he is at [facility] for treatment for all call rehabilitation and that he is out of his medication which she has prescription with him and he would like a refill on his Cogentin, gabapentin and amlodipine for couple days because is he ran out of his medication and did not male medication on weekends. He said he was sent by [facility] to get his medication refill. Denies any suicide or homicide ideation and he reports that he has schizoaffective disorder Complaint: medication refill request Initial Visit For: other ( medication refill) Returns Today for: request for prescription Symptoms Since Prior Visit: no new symptoms Context: ran out of medication Associated Symptoms: none Treatments Prior to Arrival: other (Venkat is at [facility] for alcohol rehabilitation) - Related Data Home Medications Medication Instructions Recorded Confirmed Last Taken ARIPiprazole [Abilify Maintena] 400 mg IM QMONTH 09/04/18 01/28/19 Unknown Asenapine Maleate [Saphris] 10 mg SL HS 09/04/18 01/28/19 Unknown Buprenorphine HCl/Naloxone HCl 4 mg SL DAILY 09/04/18 01/28/19 Unknown [Suboxone 4 mg-1 mg SL Film] [place] Carbonate 300 mg PO TID 09/04/18 01/28/19 Unknown Quetiapine Fumarate [Seroquel] 100 mg PO BID 09/04/18 01/28/19 Unknown busPIRone [Buspar] 10 mg PO TID 09/04/18 01/28/19 Unknown Mirtazapine [Remeron] 30 mg PO 01/29/19 Unknown hydrOXYzine PAMOATE [Vistaril] 100 mg PO Q6HR PRN 01/29/19 01/28/19 Unknown Previous Rx's Medication Instructions Recorded Last Taken Type Ondansetron [Zofran ODT TAB] 4 mg PO Q8HR #10 tab.rapdis 09/04/18 Unknown Rx Triamcinolone 0.1% [Kenalog 0.1% 1 applic TP BID #1 tube 01/05/19 Unknown Rx CREAM] methylPREDNISolone [Medrol] 4 mg PO DAILY #1 tab.ds.pk 01/05/19 Unknown Rx Benztropine [Cogentin] 1 mg PO BID 7 Days #14 tab 02/12/19 Unknown Rx Gabapentin [Neurontin] 600 mg PO Q8H 7 Days #21 tablet 02/12/19 Unknown Rx Omeprazole 20 mg PO QDAY 7 Days #7 tab. 02/12/19 Unknown Rx amLODIPine [Norvasc] 5 mg PO DAILY #7 tablet 02/12/19 Unknown Rx Allergies Allergy/AdvReac Type Severity Reaction Status Date / Time iodine Allergy Angioedema Verified 02/12/19 14:54 Penicillins Allergy Swelling Verified 02/12/19 14:54 shellfish derived Allergy Angioedema Verified 02/12/19 14:54 venom-honey bee Allergy Swelling Verified 02/12/19 14:54 [bee venom (honey bee)] ED Review of Systems ROS: Stated complaint: MEDICATION REFILL Other details as noted in HPI Constitutional: denies: chills, fever ENT: denies: throat pain, congestion Respiratory: denies: cough, shortness of breath, wheezing Cardiovascular: denies: chest pain, palpitations, edema, syncope Endocrine: denies: flushing, unexplained weight gain, unexplained weight loss Gastrointestinal: denies: abdominal pain, nausea, vomiting, hematemesis, hematochezia Genitourinary: denies: dysuria, hematuria Musculoskeletal: denies: back pain, joint swelling, arthralgia Skin: denies: rash Neurological: denies: headache, numbness, paresthesias, confusion, abnormal gait, vertigo Psychiatric: other (here for medication refill). denies: anxiety, auditory hallucinations, visual hallucinations, homicidal thoughts, suicidal thoughts ED Past Medical Hx - Past Medical History Previous Medical History?: Yes Hx Hypertension: Yes Hx Psychiatric Treatment: Yes ([place], [facility], [facility]) Additional medical history: paranoid schizophrenia and bipolar. MANIC DEPRESSION. PTSD, High Cholesterol. ECT TREATMENTS CURRENTLY - Surgical History Past Surgical History?: Yes Additional Surgical History: Oral surgery - Family History Family history: hypertension - Social History Smoking Status: Current Every Day Smoker Substance Use Type: Alcohol, Cocaine, Marijuana, Other - Medications Home Medications: Home Medications Medication Instructions Recorded Confirmed Last Taken Type ARIPiprazole [Abilify Maintena] 400 mg IM QMONTH 09/04/18 01/28/19 Unknown History Asenapine Maleate [Saphris] 10 mg SL HS 09/04/18 01/28/19 Unknown History Buprenorphine HCl/Naloxone HCl 4 mg SL DAILY 09/04/18 01/28/19 Unknown History [Suboxone 4 mg-1 mg SL Film] [place] Carbonate 300 mg PO TID 09/04/18 01/28/19 Unknown History Ondansetron [Zofran ODT TAB] 4 mg PO Q8HR #10 tab.rapdis 09/04/18 01/28/19 Unknown Rx Quetiapine Fumarate [Seroquel] 100 mg PO BID 09/04/18 01/28/19 Unknown History busPIRone [Buspar] 10 mg PO TID 09/04/18 01/28/19 Unknown History Triamcinolone 0.1% [Kenalog 0.1% 1 applic TP BID #1 tube 01/05/19 01/28/19 Unknown Rx CREAM] methylPREDNISolone [Medrol] 4 mg PO DAILY #1 tab.ds.pk 01/05/19 01/28/19 Unknown Rx Mirtazapine [Remeron] 30 mg PO 01/29/19 Unknown History hydrOXYzine PAMOATE [Vistaril] 100 mg PO Q6HR PRN 01/29/19 01/28/19 Unknown History Benztropine [Cogentin] 1 mg PO BID 7 Days #14 tab 02/12/19 Unknown Rx Gabapentin [Neurontin] 600 mg PO Q8H 7 Days #21 tablet 02/12/19 Unknown Rx Omeprazole 20 mg PO QDAY 7 Days #7 tab.rap.dr 02/12/19 Unknown Rx amLODIPine [Norvasc] 5 mg PO DAILY #7 tablet 02/12/19 Unknown Rx ED Physical Exam - General Limitations: No Limitations General appearance: alert, in no apparent distress - Head Head exam: Present: atraumatic - Eye Eye exam: Present: normal appearance, PERRL, EOMI. Absent: conjunctival injection, nystagmus Pupils: Present: normal accommodation - ENT ENT exam: Present: normal exam, normal orophraynx, mucous membranes moist - Neck Neck exam: Present: normal inspection, full ROM. Absent: tenderness, lymphadenopathy - Respiratory Respiratory exam: Present: normal lung sounds bilaterally. Absent: respiratory distress, chest wall tenderness - Cardiovascular Cardiovascular Exam: Present: normal rhythm, tachycardia - GI/Abdominal GI/Abdominal exam: Present: soft, normal bowel sounds. Absent: tenderness, organomegaly, mass, bruit - Extremities Exam Extremities exam: Present: normal inspection, full ROM, normal capillary refill. Absent: tenderness, pedal edema, joint swelling, calf tenderness - Back Exam Back exam: Present: normal inspection, full ROM, other (ambulates without any difficulties). Absent: paraspinal tenderness, vertebral tenderness - Neurological Exam Neurological exam: Present: alert, oriented X3, normal gait - Psychiatric Psychiatric exam: Present: normal affect, normal mood - Skin Skin exam: Present: warm, dry, intact, normal color. Absent: rash ED Course Vital Signs 02/12/19 02/12/19 15:26 18:18 Temperature 98.1 F Pulse Rate 122 H 92 H Respiratory 16 Rate Blood Pressure 129/95 O2 Sat by Pulse 98 Oximetry - Reevaluation(s) Reevaluation #1: 02/12/19 18:34 Patient was stable throughout ED course and heart rate is down to 92 bpm ED Recheck MDM - Differential Diagnosis Prescription Refill(s) - Medical Decision Making This is a 43-year-old male who is at [facility] for all call rehabilitation and he is here for a few days of his medication to be refilled as he said he ran o ut and is sent in from [facility]. He is requesting his Norvasc, Cogentin, Neurontin and Prilosec reordered. I spoke with Dr. Vanessa Dotsont is okay with prescription refill Critical care attestation.: If time is entered above; I have spent that time in minutes in the direct care of this critically ill patient, excluding procedure time. ED Disposition Clinical Impression: Medication refill Disposition: DC-01 TO HOME OR SELFCARE Is pt being admited?: No Does the pt Need Aspirin: No Condition: Stable Instructions: Chronic Hypertension (ED), Mood Disorders (ED), Paresthesia (ED), Schizoaffective Disorder (ED) Additional Instructions: Please return to [facility]. Take medication as prescribed Call your psychiatrist in 2 days to let him or her know that you are of the ho spital to get medication refill. Follow-up the primary care in 2-3 days Prescriptions: Benztropine [Cogentin] 1 mg PO BID 7 Days #14 tab Gabapentin [Neurontin] 600 mg PO Q8H 7 Days #21 tablet amLODIPine [Norvasc] 5 mg PO DAILY #7 tablet Omeprazole 20 mg PO QDAY 7 Days #7 tab. Referrals: your, psychiatrist [Other] - 02/14/19 [facility] [Outside] - 2-3 Days
== END 2019-02-12 18:52 | disposition home or self-care (01) ==
LOC: ED 14:53
DX: F25.9 Schizoaffective disorder, unspecified (principal); F31.9 Bipolar disorder, unspecified; F17.200 Nicotine dependence, unspecified, uncomplicated; F14.10 Cocaine abuse, uncomplicated; F12.10 Cannabis abuse, uncomplicated; I10 Essential (primary) hypertension; E78.00 Pure hypercholesterolemia, unspecified; Z76.0 Encounter for issue of repeat prescription; Z91.041 Radiographic dye allergy status; Z88.0 Allergy status to penicillin; Z91.013 Allergy to seafood; Z91.030 Bee allergy status
CPT/HCPCS: 36415; 80048; 85025; 99283; G0480; 80320

== ENCOUNTER 2020-08-26 21:21 | Emergency (ER) | payer MEDICARE ==
[2020-08-26 21:47] LABS: Bilirubin,Urine NEG (Negative); Blood,Urine NEG (Negative); Color,Urine Yellow (Yellow); Protein,Urine <15 mg/dL mg/dL (Negative); Urobilinogen,Urine < 2.0 mg/dL (<2.0); WBC,Urine < 1.0 /HPF (0.0-6.0)
[2020-08-26 21:53] LABS: Benzodiazepines Screen,Urine Negative; Cocaine Screen,Urine Negative; Methadone Screen,Urine Negative; Opiate Screen,Urine Negative
[2020-08-26 22:04] LABS: Amphetamine Screen,Urine Positive; Cannabinoid Screen,Urine Positive
[2020-08-26 22:05] LABS: Basophils % (Auto) 0.6 % (0.0-1.8); Eosinophils % (Auto) 0.6 % (0.0-4.3); Hematocrit 45.7 % (35.5-45.6); Hemoglobin 15.7 gm/dl (11.8-15.2); Lymphocytes # (Auto) 2.1 K/mm3 (1.2-5.4); Lymphocytes % (Auto) 29.2 % (13.4-35.0); Mean Corpuscular HGB Conc 34 % (32-34); Mean Corpuscular Volume 101 fl (84-94); Monocytes # (Auto) 0.7 K/mm3 (0.0-0.8); Monocytes % (Auto) 10.1 % (0.0-7.3); Platelet Count 199 K/mm3 (140-440); Red Blood Count 4.54 M/mm3 (3.65-5.03); Red Cell Distribution Width 14.5 % (13.2-15.2)
[2020-08-26 22:15] LABS: BUN/Creatinine Ratio 6; Blood Urea Nitrogen 6 mg/dL (9-20); Calcium 9.4 mg/dL (8.4-10.2); Hemolysis Index 15
--- NOTE | 2020-08-26 23:07 | Emergency Department Report ---
ED General Adult HPI - General Chief complaint: Medical Clearance Stated complaint: MEDICAL CLEARANCE PUI?: No Time Seen by Provider: 08/26/20 22:36 Source: patient, RN notes reviewed, old records reviewed Mode of arrival: Ambulatory Limitations: No Limitations - History of Present Illness Initial comments: The patient was evaluated in the emergency department for symptoms described in the history of present illness. He/she was evaluated in the context of the global COVID-19 pandemic, which necessitated consideration that the patient might be at risk for infection with the virus that causes COVID-19. Institutional protocols and algorithms that pertain to the evaluation of patients at risk for COVID-19 are in a state of rapid change based on information released by regulatory bodies including the CDC and federal and [facility] organizations. These policies and algorithms were followed during the patient's care in the emergency department. Please note that these policies, procedures and recommendations changed on a rapid basis. This is a 45-year-old gentleman. He presents to the ER today with a complaint of painless request for medical clearance. He denies physical pain. He denies loss of taste and loss of smell. He states that he occasionally hears voices, and occasionally "has problems with alcohol." He states that at the moment, he is not having physical pain, and that he is not homicidal or suicidal, he does not want to overdose, he does not own guns or firearms, he denies cough, urinary symptoms, loss of taste, loss of smell, denies exposure to Covid positive individuals, and occasionally feels anxious. His main request is for medical clearance. Improves with: none Worsens with: none Associated Symptoms: denies other symptoms - Related Data Home Medications Medication Instructions Recorded Confirmed Last Taken ARIPiprazole (NF) [Abilify 400 mg IM QMONTH 09/04/18 01/28/19 Unknown Maintena (Nf)] Asenapine Maleate [Saphris] 10 mg SL HS 09/04/18 01/28/19 Unknown Buprenorphine HCl/Naloxone HCl 4 mg SL DAILY 09/04/18 01/28/19 Unknown [Suboxone 4 mg-1 mg SL Film] [place] Carbonate 300 mg PO TID 09/04/18 01/28/19 Unknown Quetiapine Fumarate [Seroquel] 100 mg PO BID 09/04/18 01/28/19 Unknown busPIRone [Buspar] 10 mg PO TID 09/04/18 01/28/19 Unknown Mirtazapine [Remeron] 30 mg PO 01/29/19 Unknown hydrOXYzine PAMOATE [Vistaril] 100 mg PO Q6HR PRN 01/29/19 01/28/19 Unknown Previous Rx's Medication Instructions Recorded Last Taken Type Ondansetron [Zofran ODT TAB] 4 mg PO Q8HR #10 tab.rapdis 09/04/18 Unknown Rx Triamcinolone 0.1% [Kenalog 0.1% 1 applic TP BID #1 tube 01/05/19 Unknown Rx CREAM] methylPREDNISolone [Medrol] 4 mg PO DAILY #1 tab.ds.pk 01/05/19 Unknown Rx Benztropine [Cogentin] 1 mg PO BID 7 Days #14 tab 02/12/19 Unknown Rx Gabapentin [Neurontin] 600 mg PO Q8H 7 Days #21 tablet 02/12/19 Unknown Rx Omeprazole 20 mg PO QDAY 7 Days #7 tab. 02/12/19 Unknown Rx amLODIPine 5 mg PO DAILY #7 tablet 02/12/19 Unknown Rx Allergies Allergy/AdvReac Type Severity Reaction Status Date / Time iodine Allergy Angioedema Verified 02/12/19 14:54 Penicillins Allergy Swelling Verified 02/12/19 14:54 shellfish derived Allergy Angioedema Verified 02/12/19 14:54 venom-honey bee Allergy Swelling Verified 02/12/19 14:54 [bee venom (honey bee)] ED Review of Systems ROS: Stated complaint: MEDICAL CLEARANCE Other details as noted in HPI Comment: All other systems reviewed and negative Psychiatric: anxiety. denies: suicidal thoughts ED Past Medical Hx - Past Medical History Previous Medical History?: Yes Hx Hypertension: Yes Hx Psychiatric Treatment: Yes ([facility], [facility], [facility]) Additional medical history: paranoid schizophrenia and bipolar. MANIC DEPRESSION. PTSD, High Cholesterol. ECT TREATMENTS CURRENTLY - Surgical History Past Surgical History?: Yes Additional Surgical History: Oral surgery - Social History Smoking Status: Current Every Day Smoker Substance Use Type: Alcohol, Marijuana, Methamphetamines - Medications Home Medications: Home Medications Medication Instructions Recorded Confirmed Last Taken Type ARIPiprazole (NF) [Abilify 400 mg IM QMONTH 09/04/18 01/28/19 Unknown History Maintena (Nf)] Asenapine Maleate [Saphris] 10 mg SL HS 09/04/18 01/28/19 Unknown History Buprenorphine HCl/Naloxone HCl 4 mg SL DAILY 09/04/18 01/28/19 Unknown History [Suboxone 4 mg-1 mg SL Film] [place] Carbonate 300 mg PO TID 09/04/18 01/28/19 Unknown History Ondansetron [Zofran ODT TAB] 4 mg PO Q8HR #10 tab.rapdis 09/04/18 01/28/19 Unknown Rx Quetiapine Fumarate [Seroquel] 100 mg PO BID 09/04/18 01/28/19 Unknown History busPIRone [Buspar] 10 mg PO TID 09/04/18 01/28/19 Unknown History Triamcinolone 0.1% [Kenalog 0.1% 1 applic TP BID #1 tube 01/05/19 01/28/19 Unknown Rx CREAM] methylPREDNISolone [Medrol] 4 mg PO DAILY #1 tab.ds.pk 01/05/19 01/28/19 Unknown Rx Mirtazapine [Remeron] 30 mg PO 01/29/19 Unknown History hydrOXYzine PAMOATE [Vistaril] 100 mg PO Q6HR PRN 01/29/19 01/28/19 Unknown History Benztropine [Cogentin] 1 mg PO BID 7 Days #14 tab 02/12/19 Unknown Rx Gabapentin [Neurontin] 600 mg PO Q8H 7 Days #21 tablet 02/12/19 Unknown Rx Omeprazole 20 mg PO QDAY 7 Days #7 tab.rap. 02/12/19 Unknown Rx amLODIPine 5 mg PO DAILY #7 tablet 02/12/19 Unknown Rx ED Physical Exam - General Limitations: No Limitations General appearance: alert, in no apparent distress - Head Head exam: Present: atraumatic, normocephalic - Eye Eye exam: Present: normal appearance, EOMI. Absent: nystagmus - ENT ENT exam: Present: normal exam, normal orophraynx, mucous membranes moist, normal external ear exam - Neck Neck exam: Present: normal inspection, full ROM. Absent: tenderness, meningismus - Respiratory Respiratory exam: Present: normal lung sounds bilaterally. Absent: respiratory distress, wheezes, rales, rhonchi, stridor - Cardiovascular Cardiovascular Exam: Present: regular rate, normal rhythm, normal heart sounds. Absent: bradycardia, tachycardia, irregular rhythm, systolic murmur, diastolic murmur, rubs, gallop - GI/Abdominal GI/Abdominal exam: Present: soft. Absent: distended, tenderness, guarding, rebound, rigid, pulsatile mass - Rectal Rectal exam: Present: deferred - Extremities Exam Extremities exam: Present: normal inspection, full ROM, other (2+ pulses noted in the bilateral upper extremities. There is no long bony tenderness. The muscular compartments are soft). Absent: pedal edema, calf tenderness - Back Exam Back exam: Present: normal inspection, full ROM. Absent: tenderness, CVA tenderness (R), CVA tenderness (L), paraspinal tenderness, vertebral tenderness - Neurological Exam Neurological exam: Present: alert, oriented X3, normal gait, other (No facial droop. Tongue midline. Extraocular movements intact bilaterally. Facial sensation intact to light touch in V1, V2, V3 distribution bilaterally. 5 and a 5 strength in 4 extremities. Sensation intact to light touch in 4 extremities.). Absent: motor sensory deficit - Psychiatric Psychiatric exam: Absent: homicidal ideation, suicidal ideation - Skin Skin exam: Present: warm, dry, intact, normal color. Absent: rash ED Course Vital Signs 08/26/20 21:24 Temperature 97.7 F Pulse Rate 120 H Respiratory 18 Rate Blood Pressure 113/75 O2 Sat by Pulse 95 Oximetry ED Medical Decision Making - Lab Data Result diagrams: 08/26/20 21:44 08/26/20 21:44 Vital Signs 08/26/20 21:24 Temperature 97.7 F Pulse Rate 120 H Respiratory 18 Rate Blood Pressure 113/75 O2 Sat by Pulse 95 Oximetry Lab Results 08/26/20 08/26/20 08/26/20 Range/Units 21:32 21:32 21:44 WBC (4.5-11.0) K/mm3 RBC (3.65-5.03) M/mm3 Hgb (11.8-15.2) gm/dl Hct (35.5-45.6) % MCV (84-94) fl MCH (28-32) pg MCHC (32-34) % RDW (13.2-15.2) % Plt Count (140-440) K/mm3 Lymph % (Auto) (13.4-35.0) % [place] % (Auto) (0.0-7.3) % Eos % (Auto) (0.0-4.3) % Baso % (Auto) (0.0-1.8) % Lymph # (Auto) (1.2-5.4) K/mm3 [place] # (Auto) (0.0-0.8) K/mm3 Eos # (Auto) (0.0-0.4) K/mm3 Baso # (Auto) (0.0-0.1) K/mm3 Seg Neutrophils % (40.0-70.0) % Seg Neutrophils # (1.8-7.7) K/mm3 Sodium (137-145) mmol/L Potassium (3.6-5.0) mmol/L Chloride (98-107) mmol/L Carbon Dioxide (22-30) mmol/L Anion Gap mmol/L BUN (9-20) mg/dL Creatinine (0.8-1.3) mg/dL Estimated GFR ml/min BUN/Creatinine Ratio % Glucose (75-100) mg/dL Calcium (8.4-10.2) mg/dL Urine Color Yellow (Yellow) Urine Turbidity Clear (Clear) Urine pH 6.0 (5.0-7.0) Ur Specific [place] 1.006 (1.003-1.030) Urine Protein <15 mg/dl (Negative) mg/dL Urine Glucose (UA) Neg (Negative) mg/dL Urine Ketones Tr (Negative) mg/dL Urine Blood Neg (Negative) Urine Nitrite Neg (Negative) Urine Bilirubin Neg (Negative) Urine Urobilinogen < 2.0 (<2.0) mg/dL Ur Leukocyte Esterase Neg (Negative) Urine WBC (Auto) < 1.0 (0.0-6.0) /HPF Urine RBC (Auto) 1.0 (0.0-6.0) /HPF U Epithel Cells (Auto) < 1.0 (0-13.0) /HPF Salicylates < 0.3 L (2.8-20.0) mg/dL Urine Opiates Screen Negative Urine Methadone Screen Negative Acetaminophen (10.0-30.0) ug/mL Ur Barbiturates Screen Negative Ur Phencyclidine Scrn Negative Ur Amphetamines Screen Positive U Benzodiazepines Scrn Negative Urine Cocaine Screen Negative U Marijuana (THC) Screen Positive Drugs of Abuse Note Disclamer Plasma/Serum Alcohol (0-0.07) % 08/26/20 08/26/20 08/26/20 Range/Units 21:44 21:44 21:44 WBC (4.5-11.0) K/mm3 RBC (3.65-5.03) M/mm3 Hgb (11.8-15.2) gm/dl Hct (35.5-45.6) % MCV (84-94) fl MCH (28-32) pg MCHC (32-34) % RDW (13.2-15.2) % Plt Count (140-440) K/mm3 Lymph % (Auto) (13.4-35.0) % [place] % (Auto) (0.0-7.3) % Eos % (Auto) (0.0-4.3) % Baso % (Auto) (0.0-1.8) % Lymph # (Auto) (1.2-5.4) K/mm3 [place] # (Auto) (0.0-0.8) K/mm3 Eos # (Auto) (0.0-0.4) K/mm3 Baso # (Auto) (0.0-0.1) K/mm3 Seg Neutrophils % (40.0-70.0) % Seg Neutrophils # (1.8-7.7) K/mm3 Sodium 140 (137-145) mmol/L Potassium 3.7 (3.6-5.0) mmol/L Chloride 105.2 (98-107) mmol/L Carbon Dioxide 20 L (22-30) mmol/L Anion Gap 19 mmol/L BUN 6 L (9-20) mg/dL Creatinine 1.0 (0.8-1.3) mg/dL Estimated GFR > 60 ml/min BUN/Creatinine Ratio 6 % Glucose 87 (75-100) mg/dL Calcium 9.4 (8.4-10.2) mg/dL Urine Color (Yellow) Urine Turbidity (Clear) Urine pH (5.0-7.0) Ur Specific [place] (1.003-1.030) Urine Protein (Negative) mg/dL Urine Glucose (UA) (Negative) mg/dL Urine Ketones (Negative) mg/dL Urine Blood (Negative) Urine Nitrite (Negative) Urine Bilirubin (Negative) Urine Urobilinogen (<2.0) mg/dL Ur Leukocyte Esterase (Negative) Urine WBC (Auto) (0.0-6.0) /HPF Urine RBC (Auto) (0.0-6.0) /HPF U Epithel Cells (Auto) (0-13.0) /HPF Salicylates (2.8-20.0) mg/dL Urine Opiates Screen Urine Methadone Screen Acetaminophen 5.0 L (10.0-30.0) ug/mL Ur Barbiturates Screen Ur Phencyclidine Scrn Ur Amphetamines Screen U Benzodiazepines Scrn Urine Cocaine Screen U Marijuana (THC) Screen Drugs of Abuse Note Plasma/Serum Alcohol 0.09 H (0-0.07) % 12// Range/Units 21:44 WBC 7.3 (4.5-11.0) K/mm3 RBC 4.54 (3.65-5.03) M/mm3 Hgb 15.7 H (11.8-15.2) gm/dl Hct 45.7 H (35.5-45.6) % MCV 101 H (84-94) fl MCH 35 H (28-32) pg MCHC 34 (32-34) % RDW 14.5 (13.2-15.2) % Plt Count 199 (140-440) K/mm3 Lymph % (Auto) 29.2 (13.4-35.0) % [place] % (Auto) 10.1 H (0.0-7.3) % Eos % (Auto) 0.6 (0.0-4.3) % Baso % (Auto) 0.6 (0.0-1.8) % Lymph # (Auto) 2.1 (1.2-5.4) K/mm3 [place] # (Auto) 0.7 (0.0-0.8) K/mm3 Eos # (Auto) 0.0 (0.0-0.4) K/mm3 Baso # (Auto) 0.0 (0.0-0.1) K/mm3 Seg Neutrophils % 59.5 (40.0-70.0) % Seg Neutrophils # 4.4 (1.8-7.7) K/mm3 Sodium (137-145) mmol/L Potassium (3.6-5.0) mmol/L Chloride (98-107) mmol/L Carbon Dioxide (22-30) mmol/L Anion Gap mmol/L BUN (9-20) mg/dL Creatinine (0.8-1.3) mg/dL Estimated GFR ml/min BUN/Creatinine Ratio % Glucose (75-100) mg/dL Calcium (8.4-10.2) mg/dL Urine Color (Yellow) Urine Turbidity (Clear) Urine pH (5.0-7.0) Ur Specific [place] (1.003-1.030) Urine Protein (Negative) mg/dL Urine Glucose (UA) (Negative) mg/dL Urine Ketones (Negative) mg/dL Urine Blood (Negative) Urine Nitrite (Negative) Urine Bilirubin (Negative) Urine Urobilinogen (<2.0) mg/dL Ur Leukocyte Esterase (Negative) Urine WBC (Auto) (0.0-6.0) /HPF Urine RBC (Auto) (0.0-6.0) /HPF U Epithel Cells (Auto) (0-13.0) /HPF Salicylates (2.8-20.0) mg/dL Urine Opiates Screen Urine Methadone Screen Acetaminophen (10.0-30.0) ug/mL Ur Barbiturates Screen Ur Phencyclidine Scrn Ur Amphetamines Screen U Benzodiazepines Scrn Urine Cocaine Screen U Marijuana (THC) Screen Drugs of Abuse Note Plasma/Serum Alcohol (0-0.07) % - Medical Decision Making Differential diagnosis, including but not limited to: General medical exam, alcohol dependence, medical screening examination for psychiatric placement Assessment and plan: 45-year-old gentleman, who is clinically sober at this time, with a GCS of 15, who has resolved tachycardia at this time, on my examination, heart rate approximately 85 bpm, who is not homicidal, not suicidal, alert, oriented, exhibits decision-making capacity, with no acute medical complaints. Laboratory studies were ordered prior to my personal evaluation, they are reviewed and appreciated. The patient is clinically sober in the time of my examination. He does not appear to have an emergent medical condition at this time which requires inpatient hospitalization. He appears to exhibit decision- making capacity inability to care for himself independently at this time, and therefore, does not meet criteria for involuntary hold, or 1013. Do not suspect Covid based off of the clinical history. He may be discharged with outpatient follow-up, and he may go to a local psychiatric facility, if he so desires. He states he will present himself to [facility]. Critical care attestation.: If time is entered above; I have spent that time in minutes in the direct care of this critically ill patient, excluding procedure time. ED Disposition Clinical Impression: General medical exam Disposition: DC-01 TO HOME OR SELFCARE Is pt being admited?: No Does the pt Need Aspirin: No Condition: Good Additional Instructions: At the moment, patient does not appear to have an immediate medical contraindication to psychiatric evaluation, consultation and placement. We recommend that the patient follow-up with a general medical doctor within the next month. We recommend that the patient continue his outpatient nonpsychiatr ic medications. Recommend that a psychiatrist to make recommendations for the patient to continue or discontinue his psychiatric medications. Recommend the patient take a multivitamin [id number] on a daily basis. Please return to the emergency room right away with new pain, worsened pain, m igration of pain, rectal vomiting, change in mental status, confusion, inability to tolerate liquid feeds, new, worsened or different symptoms not present on the initial emergency room evaluation. Referrals: REBEKAH FITCH MD [Staff Physician] - 3-5 Days [facility] [Provider Group] - 3-5 Days
[2020-08-26 23:15] VITALS: BP 118/71
== END 2020-08-26 23:23 | disposition home or self-care (01) ==
LOC: ED 21:21
DX: Z00.00 Encounter for general adult medical examination without abnormal findings (principal); I10 Essential (primary) hypertension; F20.0 Paranoid schizophrenia; F31.9 Bipolar disorder, unspecified; F43.11 Post-traumatic stress disorder, acute; E78.00 Pure hypercholesterolemia, unspecified; F17.200 Nicotine dependence, unspecified, uncomplicated; F12.10 Cannabis abuse, uncomplicated; Z79.899 Other long term (current) drug therapy
CPT/HCPCS: 36415; 80048; 80307; 80320; 81001; 85025; 99283; G0480

== ENCOUNTER 2020-10-04 07:55 | Emergency (ER) | payer MEDICARE ==
[2020-10-04 08:08] VITALS: BP 118/67
--- NOTE | 2020-10-04 08:17 | Emergency Department Report ---
Minor Respiratory - HPI Chief Complaint: Dyspnea/Respdistress Stated Complaint: SOB Time Seen by Provider: 10/04/20 07:58 Duration: Today Severity: mild Minor Respiratory: Yes Able to Tolerate Fluids, Yes Cough, No Rhinorrhea, No Sore Throat, No Ear Pain, No Sick Contacts, No Hemoptysis, No Chest Pain, No Shortness of Breath, No Fever Other History: Patient is a 45-year-old -Stateless male that comes to us from [place]. He has 2 roommates that he says coughed all night and the patient comes in extremely anxious that he has got COVID-19. Patient does have und erlying anxiety for which she is on Inderal for. Patient has a normal temperature. He is not hypotensive. He is nonill appearing on exam. Heart rate initially elevated in triage. But once patient was reassured after his x- ray heart rate rechecked and was 95. Patient denies fever or chills. He denies chest pain. ED Review of Systems ROS: Stated complaint: SOB Other details as noted in HPI Comment: All other systems reviewed and negative ED Past Medical Hx - Past Medical History Previous Medical History?: Yes Hx Hypertension: Yes Hx Psychiatric Treatment: Yes ([place] [place], [place], [facility]) Additional medical history: paranoid schizophrenia and bipolar. MANIC DEPRESSION. PTSD, High Cholesterol. ECT TREATMENTS - Surgical History Past Surgical History?: Yes Additional Surgical History: Oral surgery - Family History Family history: no significant - Social History Smoking Status: Current Every Day Smoker Substance Use Type: Alcohol, Marijuana, Methamphetamines - Medications Home Medications: Home Medications Medication Instructions Recorded Confirmed Last Taken Type ARIPiprazole (NF) [Abilify 400 mg IM QMONTH 09/04/18 01/28/19 Unknown History Maintena (Nf)] Asenapine Maleate [Saphris] 10 mg SL HS 09/04/18 01/28/19 Unknown History Buprenorphine HCl/Naloxone HCl 4 mg SL DAILY 09/04/18 01/28/19 Unknown History [Suboxone 4 mg-1 mg SL Film] [place] Carbonate 300 mg PO TID 09/04/18 01/28/19 Unknown History Quetiapine Fumarate [Seroquel] 100 mg PO BID 09/04/18 01/28/19 Unknown History busPIRone [Buspar] 10 mg PO TID 09/04/18 01/28/19 Unknown History Mirtazapine [Remeron] 30 mg PO 01/29/19 Unknown History hydrOXYzine PAMOATE [Vistaril] 100 mg PO Q6HR PRN 01/29/19 01/28/19 Unknown History Benztropine [Cogentin] 1 mg PO BID 7 Days #14 tab 02/12/19 Unknown Rx Omeprazole 20 mg PO QDAY 7 Days #7 tab. 02/12/19 Unknown Rx amLODIPine 5 mg PO DAILY #7 tablet 02/12/19 Unknown Rx Minor Respiratory Exam - Exam General: Vital signs noted. No distress. Alert and acting appropriately. HEENT: Yes Moist Mucous Membranes, No Pharyngeal Erythema, No Pharyngeal Exudates, No Rhinorrhea, No Conjuctival Injection, No Frontal Tenderness, No Maxillary Tenderness Ear: Neither TM Bulge, Neither TM Erythema, Neither EAC Pain, Neither EAC Discharge Neck: Yes Supple, No Adenopathy Lungs: Yes Good Air Exchange, No Wheezes, No Ronchi, No Stridor, No Cough, No Labored Respirations, No Retractions, No Use of Accessory Muscles, No Other Abnormal Lung Sounds Heart: Yes Regular, No Murmur Abdomen: Yes Normal Bowel Sounds, No Tenderness, No Peritoneal Signs Skin: No Rash, No Edema Neurologic: Alert and oriented, no deficits. Musculoskeletal: Unremarkable. ED Course Vital Signs 10/04/20 08:05 Temperature 98.0 F Pulse Rate 122 H Respiratory 16 Rate Blood Pressure 118/67 [Right] O2 Sat by Pulse 100 Oximetry - Reevaluation(s) Reevaluation #1: 10/04/20 09:06 Heart rate on reexam 95 ED Medical Decision Making - Radiology Data Radiology results: report reviewed, image reviewed - Medical Decision Making X-ray negative for acute process. Patient has been reassured. Patient being discharged home to rehab with follow- up instructions for primary care. Patient verbalizes understanding of discharge plan. He is relieved that he has no evidence of Covid on his x-ray. He understands that rapid testing is available and we have instructed him aware he can get rapid testing should he needed in the future. He is concerned because he is being bound with roommates that have coughs at rehab. Vital Signs 10/04/20 08:05 Temperature 98.0 F Pulse Rate 122 H Respiratory 16 Rate Blood Pressure 118/67 [Right] O2 Sat by Pulse 100 Oximetry - Differential Diagnosis Rule out pneumonia Critical care attestation.: If time is entered above; I have spent that time in minutes in the direct care of this critically ill patient, excluding procedure time. ED Disposition Clinical Impression: Cough, Anxiety Disposition: DC-01 TO HOME OR SELFCARE Is pt being admited?: No Does the pt Need Aspirin: No Condition: Stable Instructions: COVID-19 Frequently Asked Questions, COVID-19: How to Protect Yourself and Others - [facility] Additional Instructions: wear your mask good handwashing follow up with pcp for recheck referral below Referrals: PRIMARY CAREMD [Primary Care Provider] - 3-5 Days REBEKAH FITCH MD [Staff Physician] - 3-5 Days Time of Disposition: 08:47
--- NOTE | 2020-10-04 13:29 | XRay Report ---
CHEST 2 VIEWS INDICATION: sob. COMPARISON: 05/18/2015. FINDINGS: Support devices: None. Heart: Within normal limits. Lungs/Pleura: No acute air space or interstitial disease. No significant pleural effusion. IMPRESSION: No acute findings. Signer Name: Mathew Amaya MD Signed: 10/04/2020 1:25 PM Workstation Name: [id number]
== END 2020-10-04 09:00 | disposition home or self-care (01) ==
LOC: ED 07:55
DX: R05 Cough (principal); F41.9 Anxiety disorder, unspecified; I10 Essential (primary) hypertension; F25.0 Schizoaffective disorder, bipolar type; F17.200 Nicotine dependence, unspecified, uncomplicated; F12.10 Cannabis abuse, uncomplicated; Z79.899 Other long term (current) drug therapy; Z88.0 Allergy status to penicillin; Z91.013 Allergy to seafood; Z91.030 Bee allergy status; Z88.8 Allergy status to other drugs, medicaments and biological substances
CPT/HCPCS: 71046; 99283

== ENCOUNTER 2020-10-05 18:48 | Emergency (ER) | payer MEDICARE ==
[2020-10-05] MEDS ORDERED: ACETAMINOPHEN 325 MG TAB PO ONE (20:56)
--- NOTE | 2020-10-05 21:38 | XRay Report ---
XR chest routine 2V INDICATION / CLINICAL INFORMATION: SOB, chest tightness, cough. COMPARISON: 10/04/2020 FINDINGS: SUPPORT DEVICES: None. HEART /PULMONARY VASCULATURE: No significant abnormality. LUNGS / PLEURA: No significant pulmonary or pleural abnormality. No pneumothorax. ADDITIONAL FINDINGS: No significant additional findings. IMPRESSION: 1. No acute findings. Signer Name: [place] Wade MD Signed: 10/05/2020 9:34 PM Workstation Name: [id number]
[2020-10-05 21:42] LABS: Hemoglobin 13.2 gm/dl (11.8-15.2); Mean Corpuscular HGB Conc 34 % (32-34); Mean Corpuscular Volume 100 fl (84-94); Red Blood Count 3.92 M/mm3 (3.65-5.03); Red Cell Distribution Width 14.7 % (13.2-15.2)
[2020-10-05 21:43] LABS: Platelet Count 99 K/mm3 (140-440)
[2020-10-05 21:50] LABS: Alanine Aminotransferase 75 units/L (7-56); Albumin 3.3 g/dL (3.9-5); BUN/Creatinine Ratio 8; Blood Urea Nitrogen 6 mg/dL (9-20); Calcium 8.2 mg/dL (8.4-10.2); Hemolysis Index 10
--- NOTE | 2020-10-05 22:15 | Emergency Department Report ---
ED General Adult HPI - General Chief complaint: Headache Stated complaint: SOB;BODY ACHES; HEADACHE Time Seen by Provider: 10/05/20 20:52 Source: patient Mode of arrival: Ambulatory Limitations: No Limitations - History of Present Illness Initial comments: Patient is a 45-year-old male presents emergency room complaints of URI symptoms that began 2 days ago. He has associated generalized body aches, headache, chills, dry cough, shortness of breath at night and chest tightness. He states that he was evaluated emergency department yesterday for similar symptoms and had a normal chest x-ray at that time. He states that he also went to urgent care yesterday and had a rapid COVID-19 test which he reports was negative. He denies any nausea, vomiting, diarrhea, ear pain, abdominal pain. He states he is a current every day smoker. He states he has had sick contacts at [facility]. He states that he has at [facility] due to alcohol and drug abuse. He states last time he used drugs or drink alcohol was approximately 11 days ago. He denies any recent travel. Has a past medical history of COPD but states that he does not have an inhaler. He has an allergy to iodine, penicillin, shellfish, bee stings. Severity scale (0 -10): 3 - Related Data Home Medications Medication Instructions Recorded Confirmed Last Taken ARIPiprazole (NF) [Abilify 400 mg IM QMONTH 09/04/18 01/28/19 Unknown Maintena (Nf)] Asenapine Maleate [Saphris] 10 mg SL HS 09/04/18 01/28/19 Unknown Buprenorphine HCl/Naloxone HCl 4 mg SL DAILY 09/04/18 01/28/19 Unknown [Suboxone 4 mg-1 mg SL Film] [place] Carbonate 300 mg PO TID 09/04/18 01/28/19 Unknown Quetiapine Fumarate [Seroquel] 100 mg PO BID 09/04/18 01/28/19 Unknown busPIRone [Buspar] 10 mg PO TID 09/04/18 01/28/19 Unknown Mirtazapine [Remeron] 30 mg PO 01/29/19 Unknown hydrOXYzine PAMOATE [Vistaril] 100 mg PO Q6HR PRN 01/29/19 01/28/19 Unknown Previous Rx's Medication Instructions Recorded Last Taken Type Benztropine [Cogentin] 1 mg PO BID 7 Days #14 tab 02/12/19 Unknown Rx Omeprazole 20 mg PO QDAY 7 Days #7 tab.brenda. 02/12/19 Unknown Rx amLODIPine 5 mg PO DAILY #7 tablet 02/12/19 Unknown Rx Albuterol Sulfate [Proventil Hfa] 6.7 gm IH TID PRN #1 hfa.aer.ad 10/05/20 Unknown Rx Azithromycin [Zithromax TAB] 250 mg PO DAILY 5 Days #6 tablet 10/05/20 Unknown Rx Prednisone [predniSONE 10 mg 10 mg PO .TAPER #1 tab.ds.pk 10/05/20 Unknown Rx (6-Day Pack, 21 Tabs)] Allergies Allergy/AdvReac Type Severity Reaction Status Date / Time iodine Allergy Angioedema Verified 02/12/19 14:54 Penicillins Allergy Swelling Verified 02/12/19 14:54 shellfish derived Allergy Angioedema Verified 02/12/19 14:54 venom-honey bee Allergy Swelling Verified 02/12/19 14:54 [bee venom (honey bee)] ED Review of Systems ROS: Stated complaint: SOB;BODY ACHES; HEADACHE Other details as noted in HPI Comment: All other systems reviewed and negative ED Past Medical Hx - Past Medical History Previous Medical History?: Yes Hx Hypertension: Yes Hx Psychiatric Treatment: Yes Hx COPD: Yes Additional medical history: paranoid schizophrenia and bipolar. MANIC DEPRESSION. PTSD, High Cholesterol. ECT TREATMENTS , Chronic Bronchitis - Surgical History Past Surgical History?: Yes Additional Surgical History: Oral surgery - Social History Smoking Status: Current Every Day Smoker Substance Use Type: None - Medications Home Medications: Home Medications Medication Instructions Recorded Confirmed Last Taken Type ARIPiprazole (NF) [Abilify 400 mg IM QMONTH 09/04/18 01/28/19 Unknown History Maintena (Nf)] Asenapine Maleate [Saphris] 10 mg SL HS 09/04/18 01/28/19 Unknown History Buprenorphine HCl/Naloxone HCl 4 mg SL DAILY 09/04/18 01/28/19 Unknown History [Suboxone 4 mg-1 mg SL Film] [place] Carbonate 300 mg PO TID 09/04/18 01/28/19 Unknown History Quetiapine Fumarate [Seroquel] 100 mg PO BID 09/04/18 01/28/19 Unknown History busPIRone [Buspar] 10 mg PO TID 09/04/18 01/28/19 Unknown History Mirtazapine [Remeron] 30 mg PO 01/29/19 Unknown History hydrOXYzine PAMOATE [Vistaril] 100 mg PO Q6HR PRN 01/29/19 01/28/19 Unknown History Benztropine [Cogentin] 1 mg PO BID 7 Days #14 tab 02/12/19 Unknown Rx Omeprazole 20 mg PO QDAY 7 Days #7 tab.rap.dr 02/12/19 Unknown Rx amLODIPine 5 mg PO DAILY #7 tablet 02/12/19 Unknown Rx Albuterol Sulfate [Proventil Hfa] 6.7 gm IH TID PRN #1 hfa.aer.ad 10/05/20 Unknown Rx Azithromycin [Zithromax TAB] 250 mg PO DAILY 5 Days #6 tablet 10/05/20 Unknown Rx Prednisone [predniSONE 10 mg 10 mg PO .TAPER #1 tab.ds.pk 10/05/20 Unknown Rx (6-Day Pack, 21 Tabs)] ED Physical Exam - General Limitations: No Limitations General appearance: alert, in no apparent distress - Head Head exam: Present: atraumatic, normocephalic - Eye Eye exam: Present: normal appearance - ENT ENT exam: Present: mucous membranes moist - Respiratory Respiratory exam: Present: rhonchi (mild bilaterally). Absent: respiratory distress, wheezes, rales, stridor, chest wall tenderness, accessory muscle use, decreased breath sounds, prolonged expiratory - Cardiovascular Cardiovascular Exam: Present: normal rhythm, tachycardia, normal heart sounds. Absent: systolic murmur, diastolic murmur, rubs, gallop - Neurological Exam Neurological exam: Present: alert, oriented X3 - Psychiatric Psychiatric exam: Present: normal affect, normal mood - Skin Skin exam: Present: warm, dry, intact ED Course Vital Signs 10/05/20 10/05/20 20:15 22:41 Temperature 98.5 F 97.7 F Pulse Rate 122 H 96 H Respiratory 18 18 Rate Blood Pressure 107/70 97/67 O2 Sat by Pulse 95 96 Oximetry ED Medical Decision Making - Lab Data Result diagrams: 10/05/20 21:16 10/05/20 21:16 Labs 10/05/20 10/05/20 10/05/20 21:16 21:16 21:16 WBC 4.9 RBC 3.92 Hgb 13.2 Hct 39.0 MCV 100 H MCH 34 H MCHC 34 RDW 14.7 Plt Count 99 L Add Manual Diff Complete Total Counted 100 Seg Neuts % (Manual) 79.0 H Band Neutrophils % 0 Lymphocytes % (Manual) 14.0 Reactive Lymphs % (Man) 0 Monocytes % (Manual) 6.0 Eosinophils % (Manual) 1.0 Basophils % (Manual) 0 Metamyelocytes % 0 Myelocytes % 0 Promyelocytes % 0 Blast Cells % 0 Nucleated RBC % Not Reportable Seg Neutrophils # Man 3.9 Band Neutrophils # 0.0 Lymphocytes # (Manual) 0.7 L Abs React Lymphs (Man) 0.0 Monocytes # (Manual) 0.3 Eosinophils # (Manual) 0.0 Basophils # (Manual) 0.0 Metamyelocytes # 0.0 Myelocytes # 0.0 Promyelocytes # 0.0 Blast Cells # 0.0 WBC Morphology Not Reportable Hypersegmented Neuts Not Reportable Hyposegmented Neuts Not Reportable Hypogranular Neuts Not Reportable Smudge Cells Not Reportable Toxic Granulation Not Reportable Toxic Vacuolation Not Reportable Dohle Bodies Not Reportable Pelger-Huet Anomaly Not Reportable Aye Rods Not Reportable Platelet Estimate Consistent w auto Clumped Platelets Not Reportable Plt Clumps, EDTA Not Reportable Large Platelets Not Reportable Giant Platelets Not Reportable Platelet Satelliting Not Reportable Plt Morphology Comment Not Reportable RBC Morphology Not Reportable Dimorphic RBCs Not Reportable Polychromasia Not Reportable Hypochromasia Not Reportable Poikilocytosis Not Reportable Anisocytosis Not Reportable Microcytosis Not Reportable Macrocytosis Not Reportable Spherocytes Not Reportable Pappenheimer Bodies Not Reportable Sickle Cells Not Reportable Target Cells Not Reportable Tear Drop Cells Not Reportable Ovalocytes Not Reportable Helmet Cells Not Reportable [place] Bodies Not Reportable [place] Rings Not Reportable [place] Cells Not Reportable Bite Cells Not Reportable Crenated Cell Not Reportable Elliptocytes Not Reportable Acanthocytes (Spur) Not Reportable Rouleaux Not Reportable Hemoglobin C Crystals Not Reportable Schistocytes Not Reportable Malaria parasites Not Reportable Carlos Bodies Not Reportable Hem Pathologist Commnt No Sodium 138 Potassium 4.0 Chloride 106.2 Carbon Dioxide 23 Anion Gap 13 BUN 6 L Creatinine 0.8 Estimated GFR > 60 BUN/Creatinine Ratio 8 Glucose 103 H Calcium 8.2 L Magnesium 1.70 Total Bilirubin < 0.20 AST 80 H ALT 75 H Alkaline Phosphatase 52 Total Creatine Kinase 141 Troponin T < 0.010 NT-Pro-B Natriuret Pep 24.38 Total Protein 5.1 L Albumin 3.3 L Albumin/Globulin Ratio 1.8 TSH 10/05/20 21:16 WBC RBC Hgb Hct MCV MCH MCHC RDW Plt Count Add Manual Diff Total Counted Seg Neuts % (Manual) Band Neutrophils % Lymphocytes % (Manual) Reactive Lymphs % (Man) Monocytes % (Manual) Eosinophils % (Manual) Basophils % (Manual) Metamyelocytes % Myelocytes % Promyelocytes % Blast Cells % Nucleated RBC % Seg Neutrophils # Man Band Neutrophils # Lymphocytes # (Manual) Abs React Lymphs (Man) Monocytes # (Manual) Eosinophils # (Manual) Basophils # (Manual) Metamyelocytes # Myelocytes # Promyelocytes # Blast Cells # WBC Morphology Hypersegmented Neuts Hyposegmented Neuts Hypogranular Neuts Smudge Cells Toxic Granulation Toxic Vacuolation Dohle Bodies Pelger-Huet Anomaly Aye Rods Platelet Estimate Clumped Platelets Plt Clumps, EDTA Large Platelets Giant Platelets Platelet Satelliting Plt Morphology Comment RBC Morphology Dimorphic RBCs Polychromasia Hypochromasia Poikilocytosis Anisocytosis Microcytosis Macrocytosis Spherocytes Pappenheimer Bodies Sickle Cells Target Cells Tear Drop Cells Ovalocytes Helmet Cells [place] Bodies [place] Rings [place] Cells Bite Cells Crenated Cell Elliptocytes Acanthocytes (Spur) Rouleaux Hemoglobin C Crystals Schistocytes Malaria parasites Carlos Bodies Hem Pathologist Commnt Sodium Potassium Chloride Carbon Dioxide Anion Gap BUN Creatinine Estimated GFR BUN/Creatinine Ratio Glucose Calcium Magnesium Total Bilirubin AST ALT Alkaline Phosphatase Total Creatine Kinase Troponin T NT-Pro-B Natriuret Pep Total Protein Albumin Albumin/Globulin Ratio TSH 1.740 Vital Signs 10/05/20 10/05/20 20:15 22:41 Temperature 98.5 F 97.7 F Pulse Rate 122 H 96 H Respiratory 18 18 Rate Blood Pressure 107/70 97/67 O2 Sat by Pulse 95 96 Oximetry - EKG Data EKG shows normal: sinus rhythm, QRS complexes, ST-T waves Rate: tachycardia (106 bpm) - EKG Data 10/05/20 22:18 RAD left atrial enlargement no STEMI - Radiology Data Radiology results: report reviewed Chest x-ray no acute findings - Medical Decision Making Patient is a 45-year-old male presents emergency room complaints of URI symptoms that began 2 days ago. He has associated generalized body aches, headache, chills, dry cough, shortness of breath at night and chest tightness. He states that he was evaluated emergency department yesterday for similar symptoms and had a normal chest x-ray at that time. He states that he also went to urgent care yesterday and had a rapid COVID-19 test which he reports was negative. He denies any nausea, vomiting, diarrhea, ear pain, abdominal pain. He states he is a current every day smoker. He states he has had sick contacts at [facility]. He states that he has at [facility] due to alcohol and drug abuse. He states last time he used drugs or drink alcohol was approximately 11 days ago. He denies any recent travel. Has a past medical history of COPD but states that he does not have an inhaler. He has an allergy to iodine, penicillin, shellfish, bee stings. Initial vitals with tachycardia which improved upon repeat. On exam mild rhonchi bilaterally, no wheezing, no rales, no respiratory distress, no accessory muscle use, no stridor. Labs with very mild elevation in AST and ALT, otherwise stable. Chest x-ray with no acute findings. EKG was sinus tach at 106, RAD, left atrial enlargement, no STEMI. Symptoms appear most consistent with acute on chronic bronchitis. Patient is presenting with the symptoms during COVID-19 pandemic, discussed COVID-19 with patient, discussed self quarantine, discussed return precautions. Patient does not meet hospital criteria for COVID-19 admission or for COVID-19 hospital testing. Patient is low risk based on Wells criteria for PE, PE unlikely. Patient given prescription for azithromycin, prednisone, albuterol inhaler. Advised patient Please take medication as prescribed. Please increase your fluid intake over the next several days. May take Tylenol as needed for fever or body aches. Follow-up with a primary care doctor for reexamination. Return to emergency room immediately for any new or worsening symptoms including but not limited to difficulty breathing, shortness of breath, severe chest pain, unable to tolerate by mouth intake, etc. Please self quarantine for 10 days from the onset of your symptoms. Please do not go out in public. If you are around others at home please wear a mask. If you need to cough or sneeze please do so in a napkin and immediately throw it away and immediately wash your hands. Wash your hands frequently. Wipe everything down. - Differential Diagnosis PNA, URI, COVID-19, viral syndrome, acute bronchitis, COPD Critical care attestation.: If time is entered above; I have spent that time in minutes in the direct care of this critically ill patient, excluding procedure time. ED Disposition Clinical Impression: Acute bronchitis Qualifiers: Bronchitis organism: unspecified organism Qualified Code(s): J20.9 - Acute bronchitis, unspecified Disposition: DC- TO HOME OR SELFCARE Is pt being admited?: No Does the pt Need Aspirin: No Condition: Stable Instructions: COVID-19, Acute Bronchitis, Adult, [id number], COVID-19: How to Protect Yourself and Others - CDC, Acute Bronchitis (ED) Additional Instructions: Please take medication as prescribed. Please increase your fluid intake over the next several days. May take Tylenol as needed for fever or body aches. Follow-up with a primary care doctor for reexamination. Return to emergency room immediately for any new or worsening symptoms including but not limited to difficulty breathing, shortness of breath, severe chest pain, unable to tolerate by mouth intake, etc. Please self quarantine for 10 days from the onset of your symptoms. Please do not go out in public. If you are around others at home please wear a mask. If you need to cough or sneeze please do so in a napkin and immediately throw it away and immediately wash your hands. Wash your hands frequently. Wipe everything down. Prescriptions: Prednisone [predniSONE 10 mg (6-Day Pack, 21 Tabs)] 10 mg PO .TAPER #1 tab.ds.pk Albuterol Sulfate [Proventil Hfa] 6.7 gm IH TID PRN #1 hfa.aer.ad PRN Reason: wheezing Azithromycin [Zithromax TAB] 250 mg PO DAILY 5 Days #6 tablet Referrals: KAREN FLOYD MD [Primary Care Provider] - 2-3 Days REBEKAH FITCH MD [Staff Physician] - 2-3 Days [facility] [Provider Group] - 2-3 Days Time of Disposition: 22:17 Print Language: KENYAN
[2020-10-05 22:16] LABS: Total Cells Counted 100
[2020-10-05 22:17] LABS: Basophils % (Manual) 0 % (0.0-1.8)
[2020-10-05 22:21] LABS: Platelet Estimate Consistent w Auto
[2020-10-05 22:44] VITALS: BP 97/67
== END 2020-10-05 22:45 | disposition home or self-care (01) ==
LOC: ED 18:48
DX: J20.9 Acute bronchitis, unspecified (principal); I10 Essential (primary) hypertension; F17.200 Nicotine dependence, unspecified, uncomplicated; Z98.890 Other specified postprocedural states; Z79.2 Long term (current) use of antibiotics; Z79.899 Other long term (current) drug therapy; Z88.0 Allergy status to penicillin; Z91.030 Bee allergy status; Z91.013 Allergy to seafood
CPT/HCPCS: 36415; 71046; 80053; 82550; 83735; 83880; 84443; 84484; 85007; 85025

== ENCOUNTER 2022-03-03 11:58 | Emergency (ER) | payer MEDICARE ==
--- NOTE | 2022-03-03 12:09 | Event Note ---
ED Screening Note ED Screening Note: Patient comes to the emergency room for skin TB test and RPR test to be admitted to [place] [facility]. I explained to him that we do not do skin TB test. And then if we do an RPR it is a send out will take over a week to come back. He needs these test results by Thursday. Patient has elected to leave the ER without further treatment/testing. This initial assessment/diagnostic orders/clinical plan/treatment(s) is/are subject to change based on patients health status, clinical progression and re-assessment by fellow clinical providers in the ED. Further treatment and workup at subsequent clinical providers discretion. Patient/guardian urged not to elope from the ED as their condition may be serious if not clinically assessed and managed. Initial orders include: MSE with referrals to local community centers.
== END 2022-03-03 12:10 | disposition left against medical advice (07) ==
LOC: ED 11:58
DX: A15.9 Respiratory tuberculosis unspecified (principal); Z53.21 Procedure and treatment not carried out due to patient leaving prior to being seen by health care provider